=== PATIENT | female | born 1955 | race American Indian/Alaskan Native ===

== ENCOUNTER 2021-07-29 15:55 | Inpatient (IN) | payer MEDICARE ==
[2021-07-29] MEDS ORDERED: SODIUM CHLORIDE 0.9% 1000 ML 1,000 ML IV ONE ×2 (16:25)
--- NOTE | 2021-07-29 16:32 | Emergency Department Report ---
HPI - General Chief Complaint: Weakness Time Seen by Provider: 07/29/21 16:12 - HPI HPI: Room 6 The patient is a 66-year-old female sent from [facility] with reported weakness, altered mental status and hypotension. Attempted to contact [facility] for further history and was notified that the nurse would call me back. The patient only complains of diffuse itching for the past 3 days. Patient denies shortness of breath, nausea/vomiting or pain ED Past Medical Hx - Past Medical History Additional medical history: Multiple sclerosis, iron deficiency anemia - Family History Family history: no significant - Social History Smoking Status: Unknown if ever smoked Substance Use Type: None - Medications Home Medications: Home Medications Medication Instructions Recorded Confirmed Last Taken Type Baclofen 20 mg PO TID 04/21/21 04/21/21 04/11/21 History DOXYCYCLINE Hyclate [Vibramycin 100 mg PO BID #14 tab 04/21/21 Unknown Rx CAP] Enoxaparin 90 mg SUB-Q Q12HR #3 syringe 04/21/21 Unknown Rx Metoprolol [Lopressor TAB] 12.5 mg PO BID #60 tablet 04/21/21 Unknown Rx Oxybutynin [Ditropan] 15 mg PO QDAY 04/21/21 04/21/21 04/11/21 History Venlafaxine [Effexor 37.5mg tab] 37.5 mg PO QDAY 04/21/21 04/21/21 04/11/21 History ED Review of Systems ROS: Stated complaint: HYPOTENSION Other details as noted in HPI Constitutional: denies: fever Eyes: denies: eye pain ENT: denies: throat pain Respiratory: denies: cough, shortness of breath Cardiovascular: denies: chest pain Endocrine: no symptoms reported Gastrointestinal: denies: nausea, vomiting Genitourinary: denies: dysuria Musculoskeletal: denies: back pain Skin: pruritus Neurological: denies: headache Physical Exam - Physical Exam Vital Signs: Vital Signs 07/29/21 07/29/21 15:57 16:18 Temperature 99.5 F Pulse Rate 84 Respiratory 14 Rate Blood Pressure 96/60 [Right] O2 Sat by Pulse 100 Oximetry Physical Exam: GENERAL: The patient is well-developed well-nourished female lying on stretcher not appearing to be in acute distress. [] HEENT: Normocephalic. Atraumatic. Extraocular motions are intact. Patient has moist mucous membranes. NECK: Supple. No meningitic signs are noted. There is no adenopathy noted. CHEST/LUNGS: Clear to auscultation. There is no respiratory distress noted. HEART/CARDIOVASCULAR: Regular. There is tachycardia. There is no gallop rub or murmur. ABDOMEN: Abdomen is soft, nontender. Patient has normal bowel sounds. There is no abdominal distention. SKIN: There is an approximately racquetball sized sacral decubitus ulcer that is foul-smelling with some grayish-brown drainage NEURO: The patient is awake, alert, and oriented. The patient is cooperative. The patient has no focal neurologic deficits. The patient has normal speech. GCS 15 MUSCULOSKELETAL: There is no evidence of acute injury. ED Course Vital Signs 07/29/21 07/29/21 15:57 16:18 Temperature 99.5 F Pulse Rate 84 Respiratory 14 Rate Blood Pressure 96/60 [Right] O2 Sat by Pulse 100 Oximetry - Central Line Placement Right Femoral Consent Obtained: verbal consent Time Out Performed: Yes Patient Placed on Monitor/Pulse Ox: Yes MD Prep: mask, gown, gloves Central Line Prep: Povidone-Iodine 1% Local Anesthesia Used: Lidocaine 1% Amount of Anesthesia Used (mls): 5 Ultrasound Used for Placement: No Central Line Lumen Inserted: triple Reason for Insertion: Emergency Venous Access Bloods Obtained for Lab: Yes Central Line Position: good blood return, all ports aspirated, flus Dressing Applied: Tegaderm Patient Tolerated Procedure: well, no complications Complications: none ED Medical Decision Making - Lab Data Result diagrams: 07/29/21 17:21 07/29/21 17:21 Laboratory Tests 07/29/21 07/29/21 07/29/21 16:16 17:21 17:21 WBC 22.1 H RBC 3.62 L Hgb 8.8 L Hct 27.6 L MCV 76 L MCH 24 L MCHC 32 RDW 18.9 H Plt Count 511 H Add Manual Diff Complete Total Counted 100 Seg Neuts % (Manual) 94.0 H Band Neutrophils % 0 Lymphocytes % (Manual) 5.0 L Reactive Lymphs % (Man) 0 Monocytes % (Manual) 1.0 Eosinophils % (Manual) 0 Basophils % (Manual) 0 Metamyelocytes % 0 Myelocytes % 0 Promyelocytes % 0 Blast Cells % 0 Nucleated RBC % Not Reportable Seg Neutrophils # Man 20.8 H Band Neutrophils # 0.0 Lymphocytes # (Manual) 1.1 L Abs React Lymphs (Man) 0.0 Monocytes # (Manual) 0.2 Eosinophils # (Manual) 0.0 Basophils # (Manual) 0.0 Metamyelocytes # 0.0 Myelocytes # 0.0 Promyelocytes # 0.0 Blast Cells # 0.0 WBC Morphology Not Reportable Hypersegmented Neuts Not Reportable Hyposegmented Neuts Not Reportable Hypogranular Neuts Not Reportable Smudge Cells Not Reportable Toxic Granulation 1+ Toxic Vacuolation Not Reportable Dohle Bodies Not Reportable Pelger-Huet Anomaly Not Reportable Kaylah Rods Not Reportable Platelet Estimate Consistent w auto Clumped Platelets Not Reportable Plt Clumps, EDTA Not Reportable Large Platelets Not Reportable Giant Platelets Not Reportable Platelet Satelliting Not Reportable Plt Morphology Comment Not Reportable RBC Morphology Not Reportable Dimorphic RBCs Not Reportable Polychromasia Not Reportable Hypochromasia 1+ Poikilocytosis Not Reportable Anisocytosis Not Reportable Microcytosis Not Reportable Macrocytosis Not Reportable Spherocytes Not Reportable Pappenheimer Bodies Not Reportable Sickle Cells Not Reportable Target Cells Not Reportable Tear Drop Cells Not Reportable Ovalocytes Not Reportable Helmet Cells Not Reportable Rothman-[place] Bodies Not Reportable [place] Rings Not Reportable [place] Cells Not Reportable Bite Cells Not Reportable Crenated Cell Not Reportable Elliptocytes Not Reportable Acanthocytes (Spur) Not Reportable Rouleaux Not Reportable Hemoglobin C Crystals Not Reportable Schistocytes Not Reportable Malaria parasites Not Reportable Paul Bodies Not Reportable Hem Pathologist Commnt No Sodium 140 Potassium 4.1 Chloride 99.6 Carbon Dioxide 22 Anion Gap 23 BUN 35 H Creatinine 1.1 Estimated GFR > 60 BUN/Creatinine Ratio 32 Glucose 102 H POC Glucose 104 Lactic Acid Calcium 8.9 Total Bilirubin 0.30 AST 30 ALT 15 Alkaline Phosphatase 105 Troponin T 0.026 Total Protein 7.4 Albumin 3.3 L Albumin/Globulin Ratio 0.8 TSH Free T4 Urine Color Urine Turbidity Urine pH Ur Specific [place] Urine Protein Urine Glucose (UA) Urine Ketones Urine Blood Urine Nitrite Urine Bilirubin Urine Urobilinogen Ur Leukocyte Esterase Urine WBC (Auto) Urine RBC (Auto) U Epithel Cells (Auto) Urine Mucus 07/29/21 07/29/21 07/29/21 17:21 17:21 17:53 WBC RBC Hgb Hct MCV MCH MCHC RDW Plt Count Add Manual Diff Total Counted Seg Neuts % (Manual) Band Neutrophils % Lymphocytes % (Manual) Reactive Lymphs % (Man) Monocytes % (Manual) Eosinophils % (Manual) Basophils % (Manual) Metamyelocytes % Myelocytes % Promyelocytes % Blast Cells % Nucleated RBC % Seg Neutrophils # Man Band Neutrophils # Lymphocytes # (Manual) Abs React Lymphs (Man) Monocytes # (Manual) Eosinophils # (Manual) Basophils # (Manual) Metamyelocytes # Myelocytes # Promyelocytes # Blast Cells # WBC Morphology Hypersegmented Neuts Hyposegmented Neuts Hypogranular Neuts Smudge Cells Toxic Granulation Toxic Vacuolation Dohle Bodies Pelger-Huet Anomaly Kaylah Rods Platelet Estimate Clumped Platelets Plt Clumps, EDTA Large Platelets Giant Platelets Platelet Satelliting Plt Morphology Comment RBC Morphology Dimorphic RBCs Polychromasia Hypochromasia Poikilocytosis Anisocytosis Microcytosis Macrocytosis Spherocytes Pappenheimer Bodies Sickle Cells Target Cells Tear Drop Cells Ovalocytes Helmet Cells Rothman-[place]ante[place] Bodies [place] Rings Kaden Cells Bite Cells Crenated Cell Elliptocytes Acanthocytes (Spur) Rouleaux Hemoglobin C Crystals Schistocytes Malaria parasites Paul Bodies Hem Pathologist Commnt Sodium Potassium Chloride Carbon Dioxide Anion Gap BUN Creatinine Estimated GFR BUN/Creatinine Ratio Glucose POC Glucose Lactic Acid 1.30 Calcium Total Bilirubin AST ALT Alkaline Phosphatase Troponin T Total Protein Albumin Albumin/Globulin Ratio TSH 1.320 Free T4 1.51 H Urine Color Jackie Urine Turbidity Clear Urine pH 5.0 Ur Specific [place] 1.014 Urine Protein <15 mg/dl Urine Glucose (UA) Neg Urine Ketones Tr Urine Blood Neg Urine Nitrite Neg Urine Bilirubin Neg Urine Urobilinogen < 2.0 Ur Leukocyte Esterase Neg Urine WBC (Auto) 4.0 Urine RBC (Auto) 4.0 U Epithel Cells (Auto) < 1.0 Urine Mucus Few - EKG Data -: EKG Interpreted by Me EKG shows normal: sinus rhythm Rate: tachycardia (107 bpm) - EKG Data When compared to previous EKG there are: previous EKG unavailable Interpretation: nonspecific ST-T wave nataly - Differential Diagnosis Sepsis, dehydration, Critical care attestation.: If time is entered above; I have spent that time in minutes in the direct care of this critically ill patient, excluding procedure time. ED Disposition Clinical Impression: Infected decubitus ulcer, Sepsis Disposition: ADMITTED INPATIENT Is pt being admited?: Yes Does the pt Need Aspirin: No Condition: Fair Time of Disposition: 18:36 (Hospitalist called (Dr. Loera))
[2021-07-29 17:38] LABS: Hematocrit 27.6 % (30.3-42.9); Hemoglobin 8.8 gm/dl (10.1-14.3); Mean Corpuscular HGB Conc 32 % (30-34); Mean Corpuscular Volume 76 fl (79-97); Platelet Count 511 K/mm3 (140-440); Red Blood Count 3.62 M/mm3 (3.65-5.03); Red Cell Distribution Width 18.9 % (13.2-15.2)
--- NOTE | 2021-07-29 17:50 | XRay Report ---
CHEST 1 VIEW INDICATION: Hypotension, tachycardia. COMPARISON: 04/14/2021 FINDINGS: SUPPORT DEVICES: None. HEART: Within normal limits. LUNGS/PLEURA: No acute air space or interstitial disease. ADDITIONAL FINDINGS: None. IMPRESSION: 1. No acute findings. Signer Name: Aj Uribe MD Signed: 07/29/2021 5:45 PM Workstation Name: [id number]
[2021-07-29 18:02] LABS: Bilirubin,Urine NEG (Negative); Blood,Urine NEG (Negative); Color,Urine Amber (Yellow); Mucus,Urine FEW /HPF; Protein,Urine <15 mg/dL mg/dL (Negative); Urobilinogen,Urine < 2.0 mg/dL (<2.0)
[2021-07-29 18:12] LABS: Alanine Aminotransferase 15 units/L (7-56); Albumin 3.3 g/dL (3.9-5); BUN/Creatinine Ratio 32; Blood Urea Nitrogen 35 mg/dL (7-17); Calcium 8.9 mg/dL (8.4-10.2); Hemolysis Index 4
[2021-07-29 18:16] LABS: Basophils % (Manual) 0 % (0.0-1.8); Eosinophils % (Manual) 0 % (0.0-4.3); Hypochromasia 1+; Platelet Estimate Consistent w Auto; Total Cells Counted 100; Toxic Granulation 1+
[2021-07-29 18:20] LABS: Free T4 (Free Thyroxine) 1.51 ng/dL (0.76-1.46)
[2021-07-29] MEDS ORDERED: PIPERACIL/TAZOBACTA 4.5/NS 100 4.5 GM/100 ML VIAL IV ONE (18:30)
[2021-07-29] MEDS ORDERED: CEFEPIME/NS 2 GM/100 ML 2 GM/100 ML BAG IV ONE (18:34)
[2021-07-29] MEDS ORDERED: VANCOMYCIN/NS 1 GM/250 ML 1 GM/250 ML BAG IV ONE (18:34)
--- NOTE | 2021-07-29 21:03 | History and Physical Report ---
History of Present Illness Date of examination: 07/29/21 Date of admission: July 29, 2021 Chief complaint: Altered mental status for 1 day Foul-smelling sacral ulcer for unknown. History of present illness: 66-year-old -[place] female with multiple medical problems including multiple sclerosis and bedridden for about 8 years with bilateral foot drop sent in from [facility] for altered sensorium and foul-smelling sacral decubitus ulcer. Patient presents with altered sensorium. Intermittently answers questions appropriately. Patient could not give some history. 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 Low-grade fever present. Foul-smelling ulcer on the lower back. Patient is totally bedridden. Secondary to her multiple sclerosis and bilateral foot drop. No chills. Patient is vaccinated. - Past Medical History --Additional medical history: Multiple sclerosis, iron deficiency anemia - Family History --Family history: no significant - Social History --Smoking Status: Unknown if ever smoked --Substance Use Type: None - Medications --Home Medications: Home Medications Medication Instructions Recorded Confirmed Last Taken Type Baclofen 20 mg PO TID 04/21/21 04/21/21 04/11/21 History DOXYCYCLINE Hyclate [Vibramycin 100 mg PO BID #14 tab 04/21/21 Unknown Rx CAP] Enoxaparin 90 mg SUB-Q Q12HR #3 syringe 04/21/21 Unknown Rx Metoprolol [Lopressor TAB] 12.5 mg PO BID #60 tablet 04/21/21 Unknown Rx Oxybutynin [Ditropan] 15 mg PO QDAY 04/21/21 04/21/21 04/11/21 History Venlafaxine [Effexor 37.5mg tab] 37.5 mg PO QDAY 04/21/21 04/21/21 04/11/21 History Review of Systems ROS: Stated complaint: HYPOTENSION Other details as noted in HPI Constitutional: denies: fever Eyes: denies: eye pain ENT: denies: throat pain Respiratory: denies: cough, shortness of breath Cardiovascular: denies: chest pain Endocrine: no symptoms reported Gastrointestinal: denies: nausea, vomiting Genitourinary: denies: dysuria Musculoskeletal: denies: back pain Skin: pruritus Neurological: denies: headache Medications and Allergies Allergies Allergy/AdvReac Type Severity Reaction Status Date / Time Sulfa (Sulfonamide Allergy Hives Verified 04/21/21 08:35 Antibiotics) Home Medications Medication Instructions Recorded Confirmed Last Taken Type Baclofen 20 mg PO TID 04/21/21 07/29/21 1 Day Ago History ~07/28/21 DOXYCYCLINE Hyclate [Vibramycin 100 mg PO BID #14 tab 04/21/21 07/29/21 1 Day Ago Rx CAP] ~07/28/21 Enoxaparin 90 mg SUB-Q Q12HR #3 syringe 04/21/21 07/29/21 1 Day Ago Rx ~07/28/21 Metoprolol [Lopressor TAB] 12.5 mg PO BID #60 tablet 04/21/21 07/29/21 1 Day Ago Rx ~07/28/21 Oxybutynin [Ditropan] 15 mg PO QDAY 04/21/21 07/29/21 1 Day Ago History ~07/28/21 Venlafaxine [Effexor 37.5mg tab] 37.5 mg PO QDAY 04/21/21 07/29/21 1 Day Ago History ~07/28/21 Exam - Constitutional Vitals: Temp Pulse Resp BP Pulse Ox 99.4 F 104 H 16 176/132 95 07/29/21 17:53 07/29/21 19:01 07/29/21 19:01 07/29/21 19:01 07/29/21 18:45 General appearance: Present: no acute distress, well-nourished - EENT Eyes: Present: PERRL ENT: hearing intact, clear oral mucosa - Neck Neck: Present: supple, normal ROM - Respiratory Respiratory effort: normal Respiratory: bilateral: CTA - Cardiovascular Heart rate: 78 Rhythm: regular Heart Sounds: Present: S1 & S2. Absent: rub, click - Extremities Extremities: pulses symmetrical, No edema, abnormal (Stage IV sacral decubitus ulcer 5 cm X 5 cm with 1 cm in depth. Foul-smelling.) Extremity abnormal: other (Same as above.) Peripheral Pulses: within normal limits - Abdominal General gastrointestinal: Present: soft, non-tender, non-distended, normal bowel sounds Female genitourinary: Present: normal - Integumentary Integumentary: Present: clear, warm, dry - Musculoskeletal Musculoskeletal: generalized weakness, other (Lower extremity weakness-both lower extremities) - Psychiatric Psychiatric: depressed, other (Altered sensorium.) - Neurologic Neurologic: CNII-XII intact, moves all extremities HEART Score - HEART Score Troponin: Troponin T 0.026 ng/mL (0.00-0.029) 07/29/21 17:21 Results - Labs CBC & Chem 7: 07/29/21 17:21 07/30/21 06:12 Labs: Laboratory Last Values WBC 22.1 K/mm3 (4.5-11.0) H 07/29/21 17:21 RBC 3.62 M/mm3 (3.65-5.03) L 07/29/21 17:21 Hgb 8.8 gm/dl (10.1-14.3) L 07/29/21 17:21 Hct 27.6 % (30.3-42.9) L 07/29/21 17:21 MCV 76 fl (79-97) L 07/29/21 17:21 MCH 24 pg (28-32) L 07/29/21 17: MCHC 32 % (30-34) 07/29/21 17:21 RDW 18.9 % (13.2-15.2) H 07/29/21 17:21 Plt Count 511 K/mm3 (140-440) H 07/29/21 17:21 Add Manual Diff Complete 07/29/21 17:21 Total Counted 100 07/29/21 17:21 Seg Neuts % (Manual) 94.0 % (40.0-70.0) H 07/29/21 17:21 Band Neutrophils % 0 % 07/29/21 17:21 Lymphocytes % (Manual) 5.0 % (13.4-35.0) L 07/29/21 17:21 Reactive Lymphs % (Man) 0 % 07/29/21 17:21 Monocytes % (Manual) 1.0 % (0.0-7.3) 07/29/21 17:21 Eosinophils % (Manual) 0 % (0.0-4.3) 07/29/21 17:21 Basophils % (Manual) 0 % (0.0-1.8) 07/29/21 17:21 Metamyelocytes % 0 % 07/29/21 17:21 Myelocytes % 0 % 07/29/21 17:21 Promyelocytes % 0 % 07/29/21 17:21 Blast Cells % 0 % 07/29/21 17:21 Nucleated RBC % Not Reportable 07/29/21 17:21 Seg Neutrophils # Man 20.8 K/mm3 (1.8-7.7) H 07/29/21 17:21 Band Neutrophils # 0.0 K/mm3 07/29/21 17:21 Lymphocytes # (Manual) 1.1 K/mm3 (1.2-5.4) L 07/29/21 17:21 Abs React Lymphs (Man) 0.0 K/mm3 07/29/21 17:21 Monocytes # (Manual) 0.2 K/mm3 (0.0-0.8) 07/29/21 17:21 Eosinophils # (Manual) 0.0 K/mm3 (0.0-0.4) 07/29/21 17:21 Basophils # (Manual) 0.0 K/mm3 (0.0-0.1) 07/29/21 17:21 Metamyelocytes # 0.0 K/mm3 07/29/21 17:21 Myelocytes # 0.0 K/mm3 07/29/21 17:21 Promyelocytes # 0.0 K/mm3 07/29/21 17:21 Blast Cells # 0.0 K/mm3 07/29/21 17:21 WBC Morphology Not Reportable 07/29/21 17:21 Hypersegmented Neuts Not Reportable 07/29/21 17:21 Hyposegmented Neuts Not Reportable 07/29/21 17:21 Hypogranular Neuts Not Reportable 07/29/21 17:21 Smudge Cells Not Reportable 07/29/21 17:21 Toxic Granulation 1+ 07/29/21 17:21 Toxic Vacuolation Not Reportable 07/29/21 17:21 Dohle Bodies Not Reportable 07/29/21 17:21 Pelger-Huet Anomaly Not Reportable 07/29/21 17:21 Kaylah Rods Not Reportable 07/29/21 17:21 Platelet Estimate Consistent w auto 07/29/21 17:21 Clumped Platelets Not Reportable 07/29/21 17:21 Plt Clumps, EDTA Not Reportable 07/29/21 17:21 Large Platelets Not Reportable 07/29/21 17:21 Giant Platelets Not Reportable 07/29/21 17:21 Platelet Satelliting Not Reportable 07/29/21 17:21 Plt Morphology Comment Not Reportable 07/29/21 17:21 RBC Morphology Not Reportable 07/29/21 17:21 Dimorphic RBCs Not Reportable 07/29/21 17:21 Polychromasia Not Reportable 07/29/21 17:21 Hypochromasia 1+ 07/29/21 17:21 Poikilocytosis Not Reportable 07/29/21 17:21 Anisocytosis Not Reportable 07/29/21 17:21 Microcytosis Not Reportable 07/29/21 17:21 Macrocytosis Not Reportable 07/29/21 17:21 Spherocytes Not Reportable 07/29/21 17:21 Pappenheimer Bodies Not Reportable 07/29/21 17:21 Sickle Cells Not Reportable 07/29/21 17:21 Target Cells Not Reportable 07/29/21 17:21 Tear Drop Cells Not Reportable 07/29/21 17:21 Ovalocytes Not Reportable 07/29/21 17:21 Helmet Cells Not Reportable 07/29/21 17:21 Rothman-[place] Bodies Not Reportable 07/29/21 17:21 [place] Rings Not Reportable 07/29/21 17:21 [place] Cells Not Reportable 07/29/21 17:21 Bite Cells Not Reportable 07/29/21 17:21 Crenated Cell Not Reportable 07/29/21 17:21 Elliptocytes Not Reportable 07/29/21 17:21 Acanthocytes (Spur) Not Reportable 07/29/21 17:21 Rouleaux Not Reportable 07/29/21 17:21 Hemoglobin C Crystals Not Reportable 07/29/21 17:21 Schistocytes Not Reportable 07/29/21 17:21 Malaria parasites Not Reportable 07/29/21 17:21 Paul Bodies Not Reportable 07/29/21 17:21 Hem Pathologist Commnt No 07/29/21 17:21 Sodium 140 mmol/L (137-145) 07/29/21 17:21 Potassium 4.1 mmol/L (3.6-5.0) 07/29/21 17:21 Chloride 99.6 mmol/L (98-107) 07/29/21 17:21 Carbon Dioxide 22 mmol/L (22-30) 07/29/21 17:21 Anion Gap 23 mmol/L 07/29/21 17:21 BUN 35 mg/dL (7-17) H 07/29/21 17:21 Creatinine 1.1 mg/dL (0.6-1.2) 07/29/21 17:21 Estimated GFR > 60 ml/min 07/29/21 17:21 BUN/Creatinine Ratio 32 % 07/29/21 17:21 Glucose 102 mg/dL (65-100) H 07/29/21 17:21 POC Glucose 104 mg/dL (70-105) 07/29/21 16:16 Lactic Acid 1.30 mmol/L (0.7-2.0) 07/29/21 17:21 Calcium 8.9 mg/dL (8.4-10.2) 07/29/21 17:21 Total Bilirubin 0.30 mg/dL (0.1-1.2) 07/29/21 17:21 AST 30 units/L (5-40) 07/29/21 17:21 ALT 15 units/L (7-56) 07/29/21 17:21 Alkaline Phosphatase 105 units/L (35-129) 07/29/21 17:21 Troponin T 0.026 ng/mL (0.00-0.029) 07/29/21 17:21 Total Protein 7.4 g/dL (6.3-8.2) 07/29/21 17:21 Albumin 3.3 g/dL (3.9-5) L 07/29/21 17:21 Albumin/Globulin Ratio 0.8 % 07/29/21 17:21 TSH 1.320 mlU/mL (0.270-4.200) 07/29/21 17:21 Free T4 1.51 ng/dL (0.76-1.46) H 07/29/21 17:21 Urine Color Jackie (Yellow) 07/29/21 17:53 Urine Turbidity Clear (Clear) 07/29/21 17:53 Urine pH 5.0 (5.0-7.0) 07/29/21 17:53 Ur Specific [place] 1.014 (1.003-1.030) 07/29/21 17:53 Urine Protein <15 mg/dl mg/dL (Negative) 07/29/21 17:53 Urine Glucose (UA) Neg mg/dL (Negative) 07/29/21 17:53 Urine Ketones Tr mg/dL (Negative) 07/29/21 17:53 Urine Blood Neg (Negative) 07/29/21 17:53 Urine Nitrite Neg (Negative) 07/29/21 17:53 Urine Bilirubin Neg (Negative) 07/29/21 17:53 Urine Urobilinogen < 2.0 mg/dL (<2.0) 07/29/21 17:53 Ur Leukocyte Esterase Neg (Negative) 07/29/21 17:53 Urine WBC (Auto) 4.0 /HPF (0.0-6.0) 07/29/21 17:53 Urine RBC (Auto) 4.0 /HPF (0.0-6.0) 07/29/21 17:53 U Epithel Cells (Auto) < 1.0 /HPF (0-13.0) 07/29/21 17:53 Urine Mucus Few /HPF 07/29/21 17:53 - Imaging and Cardiology EKG: report reviewed (Sinus rhythm, heart rate of 107) Assessment and Plan Advance Directives: Yes (Full code) VTE prophylaxis?: Chemical Plan of care discussed with patient/family: Yes - Patient Problems (1) Acute encephalopathy Current Visit: No Status: Acute Plan to address problem: Altered sensorium was transient (2) Sepsis Current Visit: Yes Status: Acute Qualifiers: Severe sepsis shock status: without septic shock Plan to address problem: Sepsis secondary to sacral decubitus ulcer patient started on IV Unasyn and vancomycin Surgical consult Possible debridement (3) Sacral decubitus ulcer, stage IV Current Visit: Yes Status: Chronic Plan to address problem: patient started on IV Unasyn and vancomycin Surgical consult Possible debridement (4) Multiple sclerosis Current Visit: No Status: Chronic Plan to address problem: Patient has bilateral lower extremity weakness Physical therapy may not be helpful but will request evaluation (5) Hypertension Current Visit: No Status: Chronic Qualifiers: Hypertension type: primary hypertension Qualified Code(s): I10 - Essential (primary) hypertension Plan to address problem: Continue antihypertensives (6) Urinary incontinence Current Visit: Yes Status: Chronic Qualifiers: Urinary Incontinence type: stress incontinence Qualified Code(s): N39.3 - Stress incontinence (female) (male) Plan to address problem: Patient on oxybutynin (7) Malnutrition Current Visit: Yes Status: Chronic Qualifiers: Protein-calorie malnutrition severity: moderate Plan to address problem: Dietary surveillance initiated (8) Anemia of chronic disease Current Visit: Yes Status: Chronic Plan to address problem: Anemia work-up (9) Advance care planning Current Visit: Yes Status: Acute Plan to address problem: Disease education conducted, care plan discussed, diagnosis discussed, prognosis discussed. Patient is full code. Patient acknowledges understanding and agre ement with care plan. +30 minutes. (10) DVT prophylaxis Current Visit: Yes Status: Acute Plan to address problem: On anticoagulation and GI prophylaxis
[2021-07-29] MEDS ORDERED: ACETAMINOPHEN 325 MG TAB PO PRN (21:04)
[2021-07-29] MEDS ORDERED: METOCLOPRAMIDE 10 MG/2 ML INJ IV PRN (21:04)
[2021-07-29] MEDS ORDERED: ONDANSETRON 4 MG/2 ML INJ IV PRN (21:04)
[2021-07-29] MEDS ORDERED: VANCOMYCIN PHARMACY TO DOSE IV SCH (22:00)
[2021-07-29] MEDS: METOPROLOL TARTRATE 25 MG TAB PO SCH (22:35)
[2021-07-30] MEDS: AMPICILLIN/SULBACTA 3GM/100ML 3 GM/100 ML BAG IV SCH ×4 (04:04→17:26)
[2021-07-30] MEDS: SODIUM CHLORIDE 0.9% 1000 ML 1,000 ML IV SCH (05:51)
[2021-07-30 07:23] LABS: Alanine Aminotransferase 12 units/L (7-56); Albumin 2.7 g/dL (3.9-5); BUN/Creatinine Ratio 36; Blood Urea Nitrogen 29 mg/dL (7-17); Calcium 8.1 mg/dL (8.4-10.2); Hemolysis Index 1
[2021-07-30] MEDS ORDERED: NON-FORMULARY EACH (Baclofen [Baclofen] 20 MG Tablet) PO SCH (08:00)
[2021-07-30] MEDS: BACLOFEN 10 MG TAB PO SCH ×3 (08:00→20:21)
[2021-07-30 08:05] LABS: Basophils # (Auto) 0.1 K/mm3 (0.0-0.1); Basophils % (Auto) 0.4 % (0.0-1.8); Eosinophils % (Auto) 0.2 % (0.0-4.3); Hematocrit 24.5 % (30.3-42.9); Hemoglobin 7.6 gm/dl (10.1-14.3); Lymphocytes % (Auto) 12.7 % (13.4-35.0); Mean Corpuscular HGB Conc 31 % (30-34); Mean Corpuscular Volume 78 fl (79-97); Monocytes # (Auto) 1.2 K/mm3 (0.0-0.8); Monocytes % (Auto) 7.6 % (0.0-7.3); Platelet Count 431 K/mm3 (140-440); Red Blood Count 3.15 M/mm3 (3.65-5.03); Red Cell Distribution Width 19.4 % (13.2-15.2)
[2021-07-30] MEDS: METOPROLOL TARTRATE 25 MG TAB PO SCH ×2 (09:54→22:17)
[2021-07-30] MEDS: VANCOMYCIN/NS 1 GM/250 ML 1 GM/250 ML BAG IV SCH ×2 (09:58→21:27)
[2021-07-30] MEDS: OXYBUTYNIN 5 MG TAB PO SCH (09:59)
[2021-07-30] MEDS: VENLAFAXINE 37.5 MG TAB PO SCH (09:59)
--- NOTE | 2021-07-30 15:54 | Consultation ---
History of Present Illness Consult date: 07/30/21 Chief complaint: Sacral wound - History of present illness History of present illness: 66-year-old female with a history of multiple sclerosis who is bedbound. Patient is currently residing in a penit[facility]iary and was sent from the penitentiary to the hospital for altered mental status and evaluation of a sacral decubitus ulcer. Patient states she has been in the penitentiary since February of last year and does not have a history of a sacral wound prior to this. She states that she has pain throughout her body. No fevers or chills. No chest pain or shortness of breath. During evaluation in the emergency room patient wa s noted to have a foul-smelling necrotic sacral decubitus ulcer for which surgery is consulted. Past History Past Medical History: other (Multiple sclerosis, bedbound, chronic pain) Past Surgical History: Other (Unknown) Social history: other (Lives in penitentiary) Family history: no significant family history Medications and Allergies Allergies Allergy/AdvReac Type Severity Reaction Status Date / Time Sulfa (Sulfonamide Allergy Hives Verified 04/21/21 08:35 Antibiotics) Home Medications Medication Instructions Recorded Confirmed Last Taken Type Baclofen 20 mg PO TID 04/21/21 07/29/21 1 Day Ago History ~07/28/21 DOXYCYCLINE Hyclate [Vibramycin 100 mg PO BID #14 tab 04/21/21 07/29/21 1 Day Ago Rx CAP] ~07/28/21 Enoxaparin 90 mg SUB-Q Q12HR #3 syringe 04/21/21 07/29/21 1 Day Ago Rx ~07/28/21 Metoprolol [Lopressor TAB] 12.5 mg PO BID #60 tablet 04/21/21 07/29/21 1 Day Ago Rx ~07/28/21 Oxybutynin [Ditropan] 15 mg PO QDAY 04/21/21 07/29/21 1 Day Ago History ~07/28/21 Venlafaxine [Effexor 37.5mg tab] 37.5 mg PO QDAY 04/21/21 07/29/21 1 Day Ago History ~07/28/21 Active Meds: Active Medications Acetaminophen (Acetaminophen 325 Mg Tab) 650 mg PO Q4H PRN PRN Reason: Pain MILD(1-3)/Fever >100.5/SCOTT Baclofen (Baclofen 10 Mg Tab) 10 mg PO TID [facility] Last Admin: 07/30/21 14:13 Dose: 10 mg Hydromorphone HCl (Hydromorphone 1 Mg/1 Ml Inj) 0.5 mg IV Q3H PRN PRN Reason: Pain , Severe (7-10) Sodium Chloride (Nacl 0.9% 1000 Ml) 1,000 mls @ 75 mls/hr IV DIRECT [facility] Last Admin: 07/30/21 05:51 Dose: 75 mls/hr Ampicillin Sodium/Sulbactam Sodium (Unasyn/Ns 3 Gm/100 Ml) 3 gm in 100 mls @ 100 mls/hr IV Q6HR [facility]; Protocol Last Admin: 07/30/21 12:00 Dose: 100 mls/hr Vancomycin HCl (Vancomycin/Ns 1 Gm/250 Ml) 1 gm in 250 mls @ 166.667 mls/hr IV Q12H [facility] Last Admin: 07/30/21 09:58 Dose: 166.667 mls/hr Metoclopramide HCl (Metoclopramide 10 Mg/2 Ml Inj) 10 mg IV Q6H PRN PRN Reason: Nausea And Vomiting Metoprolol Tartrate (Metoprolol Tartrate 25 Mg Tab) 12.5 mg PO BID [facility] Last Admin: 07/30/21 09:54 Dose: Not Given Ondansetron HCl (Ondansetron 4 Mg/2 Ml Inj) 4 mg IV Q3H PRN PRN Reason: Nausea And Vomiting Oxybutynin Chloride (Oxybutynin 5 Mg Tab) 15 mg PO QDAY [facility] Last Admin: 07/30/21 09:59 Dose: 15 mg Oxycodone/Acetaminophen (Oxycodone /Acetaminophen 5-325mg Tab) 1 tab PO Q6H PRN PRN Reason: Pain, Moderate (4-6) Sodium Chloride (Sodium Chloride 0.9% 10 Ml Flush Syringe) 10 ml IV BID [facility] Last Admin: 07/30/21 10:00 Dose: 10 ml Sodium Chloride (Sodium Chloride 0.9% 10 Ml Flush Syringe) 10 ml IV PRN PRN PRN Reason: LINE FLUSH Venlafaxine HCl (Venlafaxine 37.5 Mg Tab) 37.5 mg PO QDAY [facility] Last Admin: 07/30/21 09:59 Dose: 37.5 mg Review of Systems All systems: negative (10 point ROS performed and negative except for that listed in HPI) Exam Vital Signs Pulse Resp BP Pulse Ox 84 14 96/60 100 07/29/21 15:57 07/29/21 15:57 07/29/21 15:57 07/29/21 15:57 Narrative exam: Gen.: Awake, alert, oriented x3. No apparent distress ENT: Trachea midline. No lymphadenopathy. No scleral icterus or conjunctival pallor CV: S1, S2 present Respiratory: No audible wheezes Abdomen: Soft, nondistended, nontender. No rebound, rigidity, guarding Extremities: Bilateral lower extremities are flaccid with foot drop. Sacrum: 6 cm sacral wound, unstageable. There is minimal purulent drainage and it is foul-smelling. Necrotic eschar. Results - Labs 07/30/21 06:12 07/30/21 06:12 Abnormal lab results 07/29/21 07/29/21 07/29/21 Range/Units 17:21 17:21 17:21 WBC 22.1 H (4.5-11.0) K/mm3 RBC 3.62 L (3.65-5.03) M/mm3 Hgb 8.8 L (10.1-14.3) gm/dl Hct 27.6 L (30.3-42.9) % MCV 76 L (79-97) fl MCH 24 L (28-32) pg RDW 18.9 H (13.2-15.2) % Plt Count 511 H (140-440) K/mm3 Lymph % (Auto) (13.4-35.0) % Alpine % (Auto) (0.0-7.3) % Alpine # (Auto) (0.0-0.8) K/mm3 Seg Neutrophils % (40.0-70.0) % Seg Neuts % (Manual) 94.0 H (40.0-70.0) % Lymphocytes % (Manual) 5.0 L (13.4-35.0) % Seg Neutrophils # (1.8-7.7) K/mm3 Seg Neutrophils # Man 20.8 H (1.8-7.7) K/mm3 Lymphocytes # (Manual) 1.1 L (1.2-5.4) K/mm3 Chloride (98-107) mmol/L Carbon Dioxide (22-30) mmol/L BUN 35 H (7-17) mg/dL Glucose 102 H (65-100) mg/dL Calcium (8.4-10.2) mg/dL Total Protein (6.3-8.2) g/dL Albumin 3.3 L (3.9-5) g/dL Free T4 1.51 H (0.76-1.46) ng/dL 07/30/21 07/30/21 Range/Units 06:12 06:12 WBC 15.4 H (4.5-11.0) K/mm3 RBC 3.15 L (3.65-5.03) M/mm3 Hgb 7.6 L (10.1-14.3) gm/dl Hct 24.5 L (30.3-42.9) % MCV 78 L (79-97) fl MCH 24 L (28-32) pg RDW 19.4 H (13.2-15.2) % Plt Count (140-440) K/mm3 Lymph % (Auto) 12.7 L (13.4-35.0) % Alpine % (Auto) 7.6 H (0.0-7.3) % Alpine # (Auto) 1.2 H (0.0-0.8) K/mm3 Seg Neutrophils % 79.1 H (40.0-70.0) % Seg Neuts % (Manual) (40.0-70.0) % Lymphocytes % (Manual) (13.4-35.0) % Seg Neutrophils # 12.2 H (1.8-7.7) K/mm3 Seg Neutrophils # Man (1.8-7.7) K/mm3 Lymphocytes # (Manual) (1.2-5.4) K/mm3 Chloride 107.3 H (98-107) mmol/L Carbon Dioxide 20 L (22-30) mmol/L BUN 29 H (7-17) mg/dL Glucose (65-100) mg/dL Calcium 8.1 L (8.4-10.2) mg/dL Total Protein 6.2 L (6.3-8.2) g/dL Albumin 2.7 L (3.9-5) g/dL Free T4 (0.76-1.46) ng/dL Diabetes panel 07/29/21 07/30/21 Range/Units 17: 06:12 Sodium 140 145 (137-145) mmol/L Potassium 4.1 3.6 (3.6-5.0) mmol/L Chloride 99.6 107.3 H (98-107) mmol/L Carbon Dioxide 22 20 L (22-30) mmol/L BUN 35 H 29 H (7-17) mg/dL Creatinine 1.1 0.8 (0.6-1.2) mg/dL Glucose 102 H 85 (65-100) mg/dL Calcium 8.9 8.1 L (8.4-10.2) mg/dL AST 30 20 (5-40) units/L ALT 15 12 (7-56) units/L Alkaline Phosphatase 105 86 (35-129) units/L Total Protein 7.4 6.2 L (6.3-8.2) g/dL Albumin 3.3 L 2.7 L (3.9-5) g/dL Thyroid panel 07/29/21 Range/Units 17:21 TSH 1.320 (0.270-4.200) mlU/mL Calcium panel 07/29/21 07/30/21 Range/Units 17: 06:12 Calcium 8.9 8.1 L (8.4-10.2) mg/dL Albumin 3.3 L 2.7 L (3.9-5) g/dL Pituitary panel 07/29/21 07/29/21 07/30/21 Range/Units 17:21 17:21 06:12 Sodium 140 145 (137-145) mmol/L Potassium 4.1 3.6 (3.6-5.0) mmol/L Chloride 99.6 107.3 H (98-107) mmol/L Carbon Dioxide 22 20 L (22-30) mmol/L BUN 35 H 29 H (7-17) mg/dL Creatinine 1.1 0.8 (0.6-1.2) mg/dL Glucose 102 H 85 (65-100) mg/dL Calcium 8.9 8.1 L (8.4-10.2) mg/dL TSH 1.320 (0.270-4.200) mlU/mL Adrenal panel 07/29/21 07/30/21 Range/Units 17:21 06:12 Sodium 140 145 (137-145) mmol/L Potassium 4.1 3.6 (3.6-5.0) mmol/L Chloride 99.6 107.3 H (98-107) mmol/L Carbon Dioxide 22 20 L (22-30) mmol/L BUN 35 H 29 H (7-17) mg/dL Creatinine 1.1 0.8 (0.6-1.2) mg/dL Glucose 102 H 85 (65-100) mg/dL Calcium 8.9 8.1 L (8.4-10.2) mg/dL Total Bilirubin 0.30 0.30 (0.1-1.2) mg/dL AST 30 20 (5-40) units/L ALT 15 12 (7-56) units/L Alkaline Phosphatase 105 86 (35-129) units/L Total Protein 7.4 6.2 L (6.3-8.2) g/dL Albumin 3.3 L 2.7 L (3.9-5) g/dL Assessment and Plan 66-year-old female with 1.infected unstageable sacral decubitus ulcer 2. bedbound 2/2 MS 3. protein calorie malnutrition Plan: 1. reg diet with supplements, n.p.o. past midnight tonight 2. IVF 3. IV abx 4. prn pain control 5. prealbumin 6. offloading of sacrum and b/l heels 7. Recommend debridement of sacral wound. Patient does have sensation in this area and would benefit from debridement in the operating room under anesthesia. I discussed this with the patient and all questions answered. Plan for OR tomorrow afternoon. I also spoke with the patient's daughter at the patient's request, Maria Del Rosario Prasad [phone] and she was updated. Thank you for this consultation. Please call with any questions or concerns. Evaluation and treatment of this patient was during the time of the national and state emergency arising from COVID19 coronavirus pandemic. Treatment and procedures performed meet the current and available best practice and guidelines for patient during the COVID pandemic.
[2021-07-30] MEDS ORDERED: VANCOMYCIN/NS 1 GM/250 ML 1 GM/250 ML BAG IV SCH (19:00)
[2021-07-31] MEDS: SODIUM CHLORIDE 0.9% 1000 ML 1,000 ML IV SCH (00:25)
[2021-07-31] MEDS: AMPICILLIN/SULBACTA 3GM/100ML 3 GM/100 ML BAG IV SCH ×4 (00:26→18:10)
[2021-07-31] MEDS: HYDROmorphone 1 MG/1 ML INJ IV PRN (00:33)
--- NOTE | 2021-07-31 08:35 | Progress Note ---
Assessment and Plan - Patient Problems (1) Acute encephalopathy Current Visit: No Status: Acute Plan to address problem: Altered sensorium was transient (2) Sepsis Current Visit: Yes Status: Acute Qualifiers: Severe sepsis shock status: without septic shock Plan to address problem: Sepsis secondary to sacral decubitus ulcer patient started on IV Unasyn and vancomycin Surgical consult Possible debridement (3) Sacral decubitus ulcer, stage IV Current Visit: Yes Status: Chronic Plan to address problem: patient started on IV Unasyn and vancomycin Surgical consult appreciated Debridement in OR tomorrow Per Surgery---Dr Jenni Biggs "1.Infected unstageable sacral decubitus ulcer 2. bedbound 2/2 MS 3. protein calorie malnutrition Plan: 1. reg diet with supplements, n.p.o. past midnight tonight 2. IVF 3. IV abx 4. prn pain control 5. prealbumin 6. offloading of sacrum and b/l heels 7. Recommend debridement of sacral wound. Patient does have sensation in this area and would benefit from debridement in the operating room under anesthesia. I discussed this with the patient and all questions answered. Plan for OR cristian orrow afternoon. I also spoke with the patient's daughter at the patient's request, Maria Del Rosario Prasad [phone] and she was updated. " (4) Multiple sclerosis Current Visit: No Status: Chronic Plan to address problem: Patient has bilateral lower extremity weakness Physical therapy may not be helpful but will request evaluation (5) Hypertension Current Visit: No Status: Chronic Qualifiers: Hypertension type: primary hypertension Qualified Code(s): I10 - Essential (primary) hypertension Plan to address problem: Continue antihypertensives (6) Urinary incontinence Current Visit: Yes Status: Chronic Qualifiers: Urinary Incontinence type: stress incontinence Qualified Code(s): N39.3 - Stress incontinence (female) (male) Plan to address problem: Patient on oxybutynin (7) Malnutrition Current Visit: Yes Status: Chronic Qualifiers: Protein-calorie malnutrition severity: moderate Plan to address problem: Dietary surveillance initiated (8) Anemia of chronic disease Current Visit: Yes Status: Chronic Plan to address problem: Anemia work-up (9) Advance care planning Current Visit: Yes Status: Acute Plan to address problem: Disease education conducted, care plan discussed, diagnosis discussed, prognosis discussed. Patient is full code. Patient acknowledges understanding and agreement with care plan. +30 minutes. (10) DVT prophylaxis Current Visit: Yes Status: Acute Plan to address problem: On anticoagulation and GI prophylaxis Subjective Date of service: 07/30/21 Objective - Constitutional Vitals: Vital Signs - 12hr 07/30/21 07/30/21 07/31/21 21:30 21:51 04:27 Temperature 98.7 F 99.6 F Pulse Rate 107 H 102 H Respiratory 16 16 Rate Blood Pressure 115/55 116/50 O2 Sat by Pulse 95 98 93 Oximetry - Labs CBC & Chem 7: 07/30/21 06:12 07/30/21 06:12 HEART Score - HEART Score Troponin: Troponin T 0.026 ng/mL (0.00-0.029) 07/29/21 17:21
--- NOTE | 2021-07-31 10:49 | Electrocardiograph Report ---
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
[2021-07-31] MEDS ORDERED: LIDOCAINE MPF (2%) 20 MG/1 ML VIAL 5 ML ONE (10:55)
[2021-07-31] MEDS ORDERED: fentaNYL 100 MCG/2 ML INJ ONE (10:56)
[2021-07-31] MEDS ORDERED: propofoL 200 MG/20 ML VIAL IV ONE (10:56)
[2021-07-31] MEDS ORDERED: MIDAZOLAM 2 MG/2 ML INJ ONE (10:56)
[2021-07-31] MEDS ORDERED: BUPIVACAINE/PF (0.5%) 5 MG/1 ML 30 ML VIAL INFILTRATI ONE ×2 (10:57→11:46)
[2021-07-31] MEDS ORDERED: LIDOCAINE (1%) 10 MG/1 ML VIAL 20 ML MDV ONE (10:57)
--- NOTE | 2021-07-31 11:13 | Anesthesia Day of Surgery ---
Anesthesia Day of Surgery - Day of Surgery Patient Examined: Yes Patient H&P Reviewed: Yes Patient is NPO: Yes
--- NOTE | 2021-07-31 11:16 | Anesthesia Consultation ---
Anesthesia Consult and Med Hx Date of service: 07/31/21 - Airway Anesthetic Teeth Evaluation: Edentulous ROM Head & Neck: Adequate Mental/Hyoid Distance: Adequate Mallampati Class: Class III - Cardiac Exam Cardiac Exam: RRR - Pre-Operative Health Status ASA Pre-Surgery Classification: ASA3 Proposed Anesthetic Plan: MAC - Pulmonary Hx Smoking: Yes (former smoker) Hx Asthma: No COPD: No Hx Pneumonia: No - Cardiovascular System Hx Hypertension: Yes - Central Nervous System Hx Neuromuscular Disorder: Yes (MS) Hx Psychiatric Problems: No - Gastrointestinal Hx Gastroesophageal Reflux Disease: Yes - Endocrine Hx End Stage Renal Disease: No - Hematic Hx Anemia: Yes Hx Sickle Cell Disease: No - Other Systems Hx Cancer: No
[2021-07-31] MEDS ORDERED: SODIUM HYPOCHLORITE, DAKIN'S 1/2 STRENGTH (0.25%) 473 ML TOPICAL SOLN ONE (11:38)
[2021-07-31] MEDS ORDERED: LIDOCAINE (1%) 10 MG/1 ML VIAL 20 ML MDV INFILTRATI ONE (11:47)
[2021-07-31] MEDS ORDERED: SODIUM CHLORIDE 0.9% IRR 1,500 ML BOTTLE IR ONE (11:47)
[2021-07-31] MEDS ORDERED: SODIUM HYPOCHLORITE, DAKIN'S 1/2 STRENGTH (0.25%) 473 ML TOPICAL SOLN IR ONE (11:47)
[2021-07-31] MEDS ORDERED: LACTATED RINGERS 1,000 ML ONE (11:56)
[2021-07-31] MEDS ORDERED: KETOROLAC 30 MG/1 ML INJ ONE (11:56)
--- NOTE | 2021-07-31 12:24 | Operative Report ---
Operative Report Operative Report: Date of surgery: 07/31/2021 Preoperative diagnosis: Infected sacral decubitus wound Postoperative diagnosis: Infected stage IV sacral decubitus wound Procedure: Excisional debridement of infected sacral decubitus wound Surgeon: DO Jamaal Anesthesia: MAC, local Findings: Necrotic skin, subcutaneous tissue, muscle and fascia overlying the bone. Initial wound measurement 5 x 6 x 0.25 cm. Post debridement wound measurement 7 x 8 x 2.5 cm EBL: 20 cc Specimen: Wound cultures Complications: None Disposition: Stable to PACU HPI and indication: Patient 66-year-old female with past medical history of MS who is bedbound and currently resides at her detention. The patient developed altered mental status prompting her to be sent to the emergency room. She was found to have a infected sacral decubitus ulcer, sepsis. She was admitted to the hospital for IV antibiotics. Upon evaluation the patient had a necrotic, unstageable sacral decubitus ulcer and it was recommended that she undergo debridement. All risk benefits, alternatives to surgery were discussed with the patient and questions answered. Consent obtained. Procedure in detail: Patient was identified in the preoperative area, take back to the operating room and placed on the operating table in supine position. After anesthesia was induced the patient was placed in left lateral decubitus position and all bony prominences padded appropriately. She was secured with a beanbag. The sacral area was prepped and draped in usual sterile fashion a timeout was performed. Local anesthetic was infiltrated around the periphery of the wound. Necrotic skin, subcutaneous tissue, muscle, and the fascia overlying the bone were sharply debrided with a forcep, 15 blade, and with Bovie electrocautery. Wound cultures were obtained. Once all the necrotic tissue was removed, the wound was irrigated. Hemostasis was carefully achieved using electrocautery. Once hemostasis was achieved the wound was packed with 1 piece of Dakin's moistened Kerlix. This was covered with 4 x 4 fluff gauze, ABD pad, Medipore tape. Please see above wound measurements. At the end of the case all sponge, instrument, sharp counts were correct x2. The patient was awoken from anesthesia and taken to PACU in stable condition. Patient's daughter was updated.
[2021-07-31] MEDS: OXYBUTYNIN 5 MG TAB PO SCH (12:25)
[2021-07-31] MEDS: BACLOFEN 10 MG TAB PO SCH ×3 (12:25→20:35)
[2021-07-31] MEDS: VENLAFAXINE 37.5 MG TAB PO SCH (12:25)
[2021-07-31] MEDS: METOPROLOL TARTRATE 25 MG TAB PO SCH ×2 (12:26→22:10)
[2021-07-31] MEDS: VANCOMYCIN/NS 1 GM/250 ML 1 GM/250 ML BAG IV SCH ×2 (12:27→22:07)
--- NOTE | 2021-07-31 14:35 | Post Anesthesia Evaluation ---
- Post Anesthesia Evaluation Patient Participated: Yes Airway Patent: Yes Stable Respiratory Function: Yes Nausea/Vomiting: No Temp > 96.8F: Yes Pain Manageable: Yes Adequeate Hydration: Yes Anesthesia Complications: No Block Receding Appropriately: Not Applicable Patient on Ventilator: No
[2021-07-31] MEDS: oxyCODONE /ACETAMINOPHEN 5-325MG TAB PO PRN (22:33)
[2021-08-01] MEDS: AMPICILLIN/SULBACTA 3GM/100ML 3 GM/100 ML BAG IV SCH ×5 (00:18→23:00)
[2021-08-01] MEDS ORDERED: SODIUM HYPOCHLORITE, DAKIN'S 1/2 STRENGTH (0.25%) 473 ML TOPICAL SOLN TP PRN (08:00)
[2021-08-01] MEDS: BACLOFEN 10 MG TAB PO SCH ×3 (08:30→20:41)
--- NOTE | 2021-08-01 08:35 | Progress Note ---
Assessment and Plan Assessment and plan: 66-year-old female with a history of multiple sclerosis who is bedbound. Patient is currently residing in a halfway and was sent from the halfway to the hospital for altered mental status and evaluation of a sacral decubitus ulcer. Patient states she has been in the halfway since February of last year and does not have a history of a sacral wound prior. During evaluation in the emergency room patient was noted to have a foul-smelling necrotic sacral decubitus ulcer for which surgery was consulted. Infected unstageable sacral decubitus ulcer Bedbound status secondary to multiple sclerosis Multiple sclerosis Protein calorie malnutrition Sepsis. Toxic metabolic encephalopathy 08/01/2021. Patient is s/p debridement with surgery. Continue offloading of sacrum and bilateral heels. Continue IV antibiotics and consult ID for further evaluation. Continue appropriate pain control. History Interval history: No new issues overnight Hospitalist Physical - Constitutional Vitals: Temp Pulse Resp BP Pulse Ox 98.2 F 101 H 18 107/48 91 08/01/21 04:52 08/01/21 04:52 08/01/21 04:52 08/01/21 04:52 08/01/21 04:52 General appearance: Present: no acute distress, well-nourished - EENT Eyes: Present: PERRL, EOM intact ENT: hearing intact, clear oral mucosa, dentition normal - Neck Neck: Present: supple, normal ROM - Respiratory Respiratory effort: normal Respiratory: bilateral: CTA - Cardiovascular Rhythm: regular Heart Sounds: Present: S1 & S2. Absent: gallop, rub - Extremities Extremities: no ischemia, No edema, Full ROM - Abdominal General gastrointestinal: soft, non-tender, non-distended, normal bowel sounds - Integumentary Integumentary: Present: clear, warm, dry - Neurologic Neurologic: CNII-XII intact, moves all extremities HEART Score - HEART Score Troponin: Troponin T 0.026 ng/mL (0.00-0.029) 07/29/21 17:21 Results - Labs CBC & Chem 7: 07/30/21 06:12 07/30/21 06:12 Labs: Laboratory Last Values WBC 15.4 K/mm3 (4.5-11.0) H 07/30/21 06:12 RBC 3.15 M/mm3 (3.65-5.03) L 07/30/21 06:12 Hgb 7.6 gm/dl (10.1-14.3) L 07/30/21 06:12 Hct 24.5 % (30.3-42.9) L 07/30/21 06:12 MCV 78 fl (79-97) L 07/30/21 06:12 MCH 24 pg (28-32) L 07/30/21 06:12 MCHC 31 % (30-34) 07/30/21 06:12 RDW 19.4 % (13.2-15.2) H 07/30/21 06:12 Plt Count 431 K/mm3 (140-440) 07/30/21 06:12 Lymph % (Auto) 12.7 % (13.4-35.0) L 07/30/21 06:12 [place] % (Auto) 7.6 % (0.0-7.3) H 07/30/21 06:12 Eos % (Auto) 0.2 % (0.0-4.3) 07/30/21 06:12 Baso % (Auto) 0.4 % (0.0-1.8) 07/30/21 06:12 Lymph # (Auto) 2.0 K/mm3 (1.2-5.4) 07/30/21 06:12 [place] # (Auto) 1.2 K/mm3 (0.0-0.8) H 07/30/21 06:12 Eos # (Auto) 0.0 K/mm3 (0.0-0.4) 07/30/21 06:12 Baso # (Auto) 0.1 K/mm3 (0.0-0.1) 07/30/21 06:12 Add Manual Diff Complete 07/29/21 17:21 Total Counted 100 07/29/21 17:21 Seg Neutrophils % 79.1 % (40.0-70.0) H 07/30/21 06:12 Seg Neuts % (Manual) 94.0 % (40.0-70.0) H 07/29/21 17:21 Band Neutrophils % 0 % 07/29/21 17:21 Lymphocytes % (Manual) 5.0 % (13.4-35.0) L 07/29/21 17:21 Reactive Lymphs % (Man) 0 % 07/29/21 17:21 Monocytes % (Manual) 1.0 % (0.0-7.3) 07/29/21 17:21 Eosinophils % (Manual) 0 % (0.0-4.3) 07/29/21 17:21 Basophils % (Manual) 0 % (0.0-1.8) 07/29/21 17:21 Metamyelocytes % 0 % 07/29/21 17:21 Myelocytes % 0 % 07/29/21 17:21 Promyelocytes % 0 % 07/29/21 17:21 Blast Cells % 0 % 07/29/21 17:21 Nucleated RBC % Not Reportable 07/29/21 17:21 Seg Neutrophils # 12.2 K/mm3 (1.8-7.7) H 07/30/21 06:12 Seg Neutrophils # Man 20.8 K/mm3 (1.8-7.7) H 07/29/21 17:21 Band Neutrophils # 0.0 K/mm3 07/29/21 17:21 Lymphocytes # (Manual) 1.1 K/mm3 (1.2-5.4) L 07/29/21 17:21 Abs React Lymphs (Man) 0.0 K/mm3 07/29/21 17:21 Monocytes # (Manual) 0.2 K/mm3 (0.0-0.8) 07/29/21 17:21 Eosinophils # (Manual) 0.0 K/mm3 (0.0-0.4) 07/29/21 17:21 Basophils # (Manual) 0.0 K/mm3 (0.0-0.1) 07/29/21 17:21 Metamyelocytes # 0.0 K/mm3 07/29/21 17:21 Myelocytes # 0.0 K/mm3 07/29/21 17:21 Promyelocytes # 0.0 K/mm3 07/29/21 17:21 Blast Cells # 0.0 K/mm3 07/29/21 17:21 WBC Morphology Not Reportable 07/29/21 17:21 Hypersegmented Neuts Not Reportable 07/29/21 17:21 Hyposegmented Neuts Not Reportable 07/29/21 17:21 Hypogranular Neuts Not Reportable 07/29/21 17:21 Smudge Cells Not Reportable 07/29/21 17:21 Toxic Granulation 1+ 07/29/21 17:21 Toxic Vacuolation Not Reportable 07/29/21 17:21 Dohle Bodies Not Reportable 07/29/21 17:21 Pelger-Huet Anomaly Not Reportable 07/29/21 17:21 Kaylah Rods Not Reportable 07/29/21 17:21 Platelet Estimate Consistent w auto 07/29/21 17:21 Clumped Platelets Not Reportable 07/29/21 17:21 Plt Clumps, EDTA Not Reportable 07/29/21 17:21 Large Platelets Not Reportable 07/29/21 17:21 Giant Platelets Not Reportable 07/29/21 17:21 Platelet Satelliting Not Reportable 07/29/21 17:21 Plt Morphology Comment Not Reportable 07/29/21 17:21 RBC Morphology Not Reportable 07/29/21 17:21 Dimorphic RBCs Not Reportable 07/29/21 17:21 Polychromasia Not Reportable 07/29/21 17:21 Hypochromasia 1+ 07/29/21 17:21 Poikilocytosis Not Reportable 07/29/21 17:21 Anisocytosis Not Reportable 07/29/21 17:21 Microcytosis Not Reportable 07/29/21 17:21 Macrocytosis Not Reportable 07/29/21 17:21 Spherocytes Not Reportable 07/29/21 17:21 Pappenheimer Bodies Not Reportable 07/29/21 17:21 Sickle Cells Not Reportable 07/29/21 17:21 Target Cells Not Reportable 07/29/21 17:21 Tear Drop Cells Not Reportable 07/29/21 17:21 Ovalocytes Not Reportable 07/29/21 17:21 Helmet Cells Not Reportable 07/29/21 17:21 [place] Bodies Not Reportable 07/29/21 17:21 [place] Rings Not Reportable 07/29/21 17:21 Kaden Cells Not Reportable 07/29/21 17:21 Bite Cells Not Reportable 07/29/21 17:21 Crenated Cell Not Reportable 07/29/21 17:21 Elliptocytes Not Reportable 07/29/21 17:21 Acanthocytes (Spur) Not Reportable 07/29/21 17:21 Rouleaux Not Reportable 07/29/21 17:21 Hemoglobin C Crystals Not Reportable 07/29/21 17:21 Schistocytes Not Reportable 07/29/21 17:21 Malaria parasites Not Reportable 07/29/21 17:21 Paul Bodies Not Reportable 07/29/21 17:21 Hem Pathologist Commnt No 07/29/21 17:21 Sodium 145 mmol/L (137-145) 07/30/21 06:12 Potassium 3.6 mmol/L (3.6-5.0) 07/30/21 06:12 Chloride 107.3 mmol/L (98-107) H 07/30/21 06:12 Carbon Dioxide 20 mmol/L (22-30) L 07/30/21 06:12 Anion Gap 21 mmol/L 07/30/21 06:12 BUN 29 mg/dL (7-17) H 07/30/21 06:12 Creatinine 0.8 mg/dL (0.6-1.2) 07/30/21 06:12 Estimated GFR > 60 ml/min 07/30/21 06:12 BUN/Creatinine Ratio 36 % 07/30/21 06:12 Glucose 85 mg/dL (65-100) 07/30/21 06:12 POC Glucose 104 mg/dL (70-105) 07/29/21 16:16 Lactic Acid 1.30 mmol/L (0.7-2.0) 07/29/21 17:21 Calcium 8.1 mg/dL (8.4-10.2) L 07/30/21 06:12 Total Bilirubin 0.30 mg/dL (0.1-1.2) 07/30/21 06:12 AST 20 units/L (5-40) 07/30/21 06:12 ALT 12 units/L (7-56) 07/30/21 06:12 Alkaline Phosphatase 86 units/L (35-129) 07/30/21 06:12 Troponin T 0.026 ng/mL (0.00-0.029) 07/29/21 17:21 Total Protein 6.2 g/dL (6.3-8.2) L 07/30/21 06:12 Albumin 2.7 g/dL (3.9-5) L 07/30/21 06:12 Albumin/Globulin Ratio 0.8 % 07/30/21 06:12 TSH 1.320 mlU/mL (0.270-4.200) 07/29/21 17:21 Free T4 1.51 ng/dL (0.76-1.46) H 07/29/21 17:21 Urine Color Jackie (Yellow) 07/29/21 17:53 Urine Turbidity Clear (Clear) 07/29/21 17:53 Urine pH 5.0 (5.0-7.0) 07/29/21 17:53 Ur Specific [place] 1.014 (1.003-1.030) 07/29/21 17:53 Urine Protein <15 mg/dl mg/dL (Negative) 07/29/21 17:53 Urine Glucose (UA) Neg mg/dL (Negative) 07/29/21 17:53 Urine Ketones Tr mg/dL (Negative) 07/29/21 17:53 Urine Blood Neg (Negative) 07/29/21 17:53 Urine Nitrite Neg (Negative) 07/29/21 17:53 Urine Bilirubin Neg (Negative) 07/29/21 17:53 Urine Urobilinogen < 2.0 mg/dL (<2.0) 07/29/21 17:53 Ur Leukocyte Esterase Neg (Negative) 07/29/21 17:53 Urine WBC (Auto) 4.0 /HPF (0.0-6.0) 07/29/21 17:53 Urine RBC (Auto) 4.0 /HPF (0.0-6.0) 07/29/21 17:53 U Epithel Cells (Auto) < 1.0 /HPF (0-13.0) 07/29/21 17:53 Urine Mucus Few /HPF 07/29/21 17:53 Microbiology: Microbiology 07/29/21 17:21 Peripheral/Venous Blood Culture - Preliminary NO GROWTH AFTER 48 HOURS 07/29/21 Unknown Buttock Wound Culture - Preliminary Gram Negative Tom 07/31/21 Unknown Wound - Deep Surgical Culture - Preliminary Patiño/IV: Voiding Method Indwelling Catheter Active Medications - Current Medications Current Medications: Generic Name Dose Route Start Last Admin Trade Name Freq PRN Reason Stop Dose Admin Acetaminophen 650 mg 07/29/21 21:04 Acetaminophen 325 Mg Tab PO Q4H PRN Pain MILD(1-3)/Fever >100.5/SCOTT Baclofen 10 mg 07/30/21 08:00 07/31/21 20:35 Baclofen 10 Mg Tab PO 10 mg TID GOLDIE Administration Hydromorphone HCl 0.5 mg 07/29/21 21:04 07/31/21 00:33 Hydromorphone 1 Mg/1 Ml Inj IV 0.5 mg Q3H PRN Administration Pain , Severe (7-10) Sodium Chloride 1,000 mls @ 75 mls/hr 07/29/21 21:15 07/31/21 00:25 Nacl 0.9% 1000 Ml IV 75 mls/hr DIRECT GOLDIE Administration Ampicillin Sodium/Sulbactam Sodium 3 gm in 100 mls @ 100 mls/hr 07/30/21 00:00 08/01/21 05:57 Unasyn/Ns 3 Gm/100 Ml IV 100 mls/hr Q6HR GOLDIE Administration Protocol Vancomycin HCl 1 gm in 250 mls @ 166.667 mls/hr 07/30/21 10:00 07/31/21 22:07 Vancomycin/Ns 1 Gm/250 Ml IV 166.667 mls/hr Q12H GOLDIE Administration Metoclopramide HCl 10 mg 07/29/21 21:04 Metoclopramide 10 Mg/2 Ml Inj IV Q6H PRN Nausea And Vomiting Metoprolol Tartrate 12.5 mg 07/29/21 22:00 07/31/21 22:10 Metoprolol Tartrate 25 Mg Tab PO Not Given BID GOLDIE Ondansetron HCl 4 mg 07/29/21 21:04 Ondansetron 4 Mg/2 Ml Inj IV Q3H PRN Nausea And Vomiting Oxybutynin Chloride 15 mg 07/30/21 10:00 07/31/21 12:25 Oxybutynin 5 Mg Tab PO Not Given QDAY GOLDEI Oxycodone/Acetaminophen 1 tab 07/29/21 21:04 07/31/21 22:33 Oxycodone /Acetaminophen 5-325mg Tab PO 1 tab Q6H PRN Administration Pain, Moderate (4-6) Sodium Chloride 10 ml 07/29/21 22:00 07/31/21 22:07 Sodium Chloride 0.9% 10 Ml Flush Syringe IV 10 ml BID GOLDIE Administration Sodium Chloride 10 ml 07/29/21 21:04 Sodium Chloride 0.9% 10 Ml Flush Syringe IV PRN PRN LINE FLUSH Sodium Hypochlorite 1 applic 08/01/21 08:00 Sodium Hypochlorite, Dakin's 1/2 Strength (0.25%) 473 Ml Topical Soln TP Q12H PRN Wound Care Venlafaxine HCl 37.5 mg 07/30/21 10:00 07/31/21 12:25 Venlafaxine 37.5 Mg Tab PO Not Given QDAY GOLDIE Nutrition/Malnutrition Assess - Dietary Evaluation Nutrition/Malnutrition Findings: Nutrition Notes Start: 07/30/21 15:13 Freq: Status: Active Protocol: Document 07/30/21 15:13 RS (Rec: 07/30/21 15:32 RS [id number]) Nutrition Notes Need for Assessment generated from: MD Order Initial or Follow up Assessment Current Diagnosis Decubitus(Pressure Ulcer), Sepsis,Hypertension, Malnutrition Other Pertinent Diagnosis MS, Sacral Ulcer Stage IV, Encephalopathy Current Diet Cardiac Diet + Dietary Supplements Labs/Tests Cl: 107.3 CO2: 20 BUN:29 Pertinent Medications NaCl 0.9% at 75mL/hr Height 5 ft 2 in Weight 68.039 kg [place] Body Weight (kg) 50.00 BMI 27.4 Weight change and time frame AMEE at this time Weight Status Appropriate Subjective/Other Information MD consult for ordered dietary supplements. RD amee this pt hx d/t encephalopathy. Pt lives at SNF and is adm d/t foul smell from stage IV sacral ulcer. Pt unable to perform harness fitter strength test and had severe weakness in LE and mild weakness in UE. RD noted some mild clavical wasting. No signifcant temporal wasting observed by RD. RD observed negliable amount of food tray consumed and one ONS unopened. RD to continue to reinforce compliance with ONS TID w meals. 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 No Is Patient Ambulatory and/or Out of Bed No REE-([place]-confined to bed) 1413.888 Kcal/Kg value to use for calculation 26 Approximate Energy Requirements Using 1769 kcal/Kg Calculation Used for Recommendations Kcal/kg Additional Notes Pro needs: 68-82g/day (1-1.2g/ kgBW/day) Fluid needs:1mL/kcal or per MD Nutrition Intervention Add Supplement/Snack (indicate name/kcal Ensure Enlive Vanilla + /protein ) [place] TID Provides kCal: 1,050 Provides Protein (gm) 60 Goal #1 Pt will meet 75% of kcal/PRO needs via PO intake/ONS Anticipated Discharge Needs: Cardiac Diet +ONS Follow-Up By: 08/01/21 Additional Comments F/U for intakes, appetite levels, ONS tolerance
[2021-08-01] MEDS: OXYBUTYNIN 5 MG TAB PO SCH (09:27)
[2021-08-01] MEDS: VENLAFAXINE 37.5 MG TAB PO SCH (09:28)
[2021-08-01] MEDS: METOPROLOL TARTRATE 25 MG TAB PO SCH ×2 (09:28→22:04)
[2021-08-01] MEDS: VANCOMYCIN/NS 1 GM/250 ML 1 GM/250 ML BAG IV SCH ×2 (09:30→10:25)
--- NOTE | 2021-08-01 12:32 | Progress Note ---
History Interval history: 66 YO Female HD #2 with Sepsis secondary to Infected Sacral Decubitus Ulcer present on admission, Encephalopathy, MS, HTN, Malnutrition, Anemia of Chronic Disease Assessment and Plan Advance Directives: Yes (Full code) VTE prophylaxis?: Chemical Plan of care discussed with patient/family: Yes - Patient Problems (1) Acute encephalopathy Current Visit: No Status: Acute Plan to address problem: Altered sensorium was transient (2) Sepsis Current Visit: Yes Status: Acute Qualifiers: Severe sepsis shock status: without septic shock Plan to address problem: Sepsis secondary to sacral decubitus ulcer patient started on IV Unasyn and vancomycin Surgical consult Possible debridement (3) Sacral decubitus ulcer, stage IV Current Visit: Yes Status: Chronic Plan to address problem: patient started on IV Unasyn and vancomycin Surgical consult Possible debridement (4) Multiple sclerosis Current Visit: No Status: Chronic Plan to address problem: Patient has bilateral lower extremity weakness Physical therapy may not be helpful but will request evaluation (5) Hypertension Current Visit: No Status: Chronic Qualifiers: Hypertension type: primary hypertension Qualified Code(s): I10 - Essential (primary) hypertension Plan to address problem: Continue antihypertensives (6) Urinary incontinence Current Visit: Yes Status: Chronic Qualifiers: Urinary Incontinence type: stress incontinence Qualified Code(s): N39.3 - Stress incontinence (female) (male) Plan to address problem: Patient on oxybutynin (7) Malnutrition Current Visit: Yes Status: Chronic Qualifiers: Protein-calorie malnutrition severity: moderate Plan to address problem: Dietary surveillance initiated (8) Anemia of chronic disease Current Visit: Yes Status: Chronic Plan to address problem: Anemia work-up (9) Advance care planning Current Visit: Yes Status: Acute Plan to address problem: Disease education conducted, care plan discussed, diagnosis discussed, prognosis discussed. Patient is full code. Patient acknowledges understanding and agreement with care plan. +30 minutes. (10) DVT prophylaxis Current Visit: Yes Status: Acute Plan to address problem: On anticoagulation and GI prophylaxis Hospitalist Physical - Constitutional Vitals: Temp Pulse Resp BP Pulse Ox 98.2 F 93 H 18 127/57 91 08/01/21 04:52 08/01/21 09:28 08/01/21 04:52 08/01/21 09:28 08/01/21 04:52 General appearance: Present: no acute distress, well-nourished HEART Score - HEART Score Troponin: Troponin T 0.026 ng/mL (0.00-0.029) 07/29/21 17:21 Results - Labs CBC & Chem 7: 07/30/21 06:12 07/30/21 06:12 Labs: Laboratory Last Values WBC 15.4 K/mm3 (4.5-11.0) H 07/30/21 06:12 RBC 3.15 M/mm3 (3.65-5.03) L 07/30/21 06:12 Hgb 7.6 gm/dl (10.1-14.3) L 07/30/21 06:12 Hct 24.5 % (30.3-42.9) L 07/30/21 06:12 MCV 78 fl (79-97) L 07/30/21 06:12 MCH 24 pg (28-32) L 07/30/21 06:12 MCHC 31 % (30-34) 07/30/21 06:12 RDW 19.4 % (13.2-15.2) H 07/30/21 06:12 Plt Count 431 K/mm3 (140-440) 07/30/21 06:12 Lymph % (Auto) 12.7 % (13.4-35.0) L 07/30/21 06:12 [place] % (Auto) 7.6 % (0.0-7.3) H 07/30/21 06:12 Eos % (Auto) 0.2 % (0.0-4.3) 07/30/21 06:12 Baso % (Auto) 0.4 % (0.0-1.8) 07/30/21 06:12 Lymph # (Auto) 2.0 K/mm3 (1.2-5.4) 07/30/21 06:12 [place] # (Auto) 1.2 K/mm3 (0.0-0.8) H 07/30/21 06:12 Eos # (Auto) 0.0 K/mm3 (0.0-0.4) 07/30/21 06:12 Baso # (Auto) 0.1 K/mm3 (0.0-0.1) 07/30/21 06:12 Add Manual Diff Complete 07/29/21 17:21 Total Counted 100 07/29/21 17:21 Seg Neutrophils % 79.1 % (40.0-70.0) H 07/30/21 06:12 Seg Neuts % (Manual) 94.0 % (40.0-70.0) H 07/29/21 17:21 Band Neutrophils % 0 % 07/29/21 17:21 Lymphocytes % (Manual) 5.0 % (13.4-35.0) L 07/29/21 17:21 Reactive Lymphs % (Man) 0 % 07/29/21 17:21 Monocytes % (Manual) 1.0 % (0.0-7.3) 07/29/21 17:21 Eosinophils % (Manual) 0 % (0.0-4.3) 07/29/21 17:21 Basophils % (Manual) 0 % (0.0-1.8) 07/29/21 17:21 Metamyelocytes % 0 % 07/29/21 17:21 Myelocytes % 0 % 07/29/21 17:21 Promyelocytes % 0 % 07/29/21 17:21 Blast Cells % 0 % 07/29/21 17:21 Nucleated RBC % Not Reportable 07/29/21 17:21 Seg Neutrophils # 12.2 K/mm3 (1.8-7.7) H 07/30/21 06:12 Seg Neutrophils # Man 20.8 K/mm3 (1.8-7.7) H 07/29/21 17:21 Band Neutrophils # 0.0 K/mm3 07/29/21 17:21 Lymphocytes # (Manual) 1.1 K/mm3 (1.2-5.4) L 07/29/21 17:21 Abs React Lymphs (Man) 0.0 K/mm3 07/29/21 17:21 Monocytes # (Manual) 0.2 K/mm3 (0.0-0.8) 07/29/21 17:21 Eosinophils # (Manual) 0.0 K/mm3 (0.0-0.4) 07/29/21 17:21 Basophils # (Manual) 0.0 K/mm3 (0.0-0.1) 07/29/21 17:21 Metamyelocytes # 0.0 K/mm3 07/29/21 17:21 Myelocytes # 0.0 K/mm3 07/29/21 17:21 Promyelocytes # 0.0 K/mm3 07/29/21 17:21 Blast Cells # 0.0 K/mm3 07/29/21 17:21 WBC Morphology Not Reportable 07/29/21 17:21 Hypersegmented Neuts Not Reportable 07/29/21 17:21 Hyposegmented Neuts Not Reportable 07/29/21 17:21 Hypogranular Neuts Not Reportable 07/29/21 17:21 Smudge Cells Not Reportable 07/29/21 17:21 Toxic Granulation 1+ 07/29/21 17:21 Toxic Vacuolation Not Reportable 07/29/21 17:21 Dohle Bodies Not Reportable 07/29/21 17:21 Pelger-Huet Anomaly Not Reportable 07/29/21 17:21 Kaylah Rods Not Reportable 07/29/21 17:21 Platelet Estimate Consistent w auto 07/29/21 17:21 Clumped Platelets Not Reportable 07/29/21 17:21 Plt Clumps, EDTA Not Reportable 07/29/21 17:21 Large Platelets Not Reportable 07/29/21 17:21 Giant Platelets Not Reportable 07/29/21 17:21 Platelet Satelliting Not Reportable 07/29/21 17:21 Plt Morphology Comment Not Reportable 07/29/21 17:21 RBC Morphology Not Reportable 07/29/21 17:21 Dimorphic RBCs Not Reportable 07/29/21 17:21 Polychromasia Not Reportable 07/29/21 17:21 Hypochromasia 1+ 07/29/21 17:21 Poikilocytosis Not Reportable 07/29/21 17:21 Anisocytosis Not Reportable 07/29/21 17:21 Microcytosis Not Reportable 07/29/21 17:21 Macrocytosis Not Reportable 07/29/21 17:21 Spherocytes Not Reportable 07/29/21 17:21 Pappenheimer Bodies Not Reportable 07/29/21 17:21 Sickle Cells Not Reportable 07/29/21 17:21 Target Cells Not Reportable 07/29/21 17:21 Tear Drop Cells Not Reportable 07/29/21 17:21 Ovalocytes Not Reportable 07/29/21 17:21 Helmet Cells Not Reportable 07/29/21 17:21 Rothman-Mal[place] Bodies Not Reportable 07/29/21 17:21 [place] Rings Not Reportable 07/29/21 17:21 Kaden Cells Not Reportable 07/29/21 17:21 Bite Cells Not Reportable 07/29/21 17:21 Crenated Cell Not Reportable 07/29/21 17:21 Elliptocytes Not Reportable 07/29/21 17:21 Acanthocytes (Spur) Not Reportable 07/29/21 17:21 Rouleaux Not Reportable 07/29/21 17:21 Hemoglobin C Crystals Not Reportable 07/29/21 17:21 Schistocytes Not Reportable 07/29/21 17:21 Malaria parasites Not Reportable 07/29/21 17:21 Paul Bodies Not Reportable 07/29/21 17:21 Hem Pathologist Commnt No 07/29/21 17:21 Sodium 145 mmol/L (137-145) 07/30/21 06:12 Potassium 3.6 mmol/L (3.6-5.0) 07/30/21 06:12 Chloride 107.3 mmol/L (98-107) H 07/30/21 06:12 Carbon Dioxide 20 mmol/L (22-30) L 07/30/21 06:12 Anion Gap 21 mmol/L 07/30/21 06:12 BUN 29 mg/dL (7-17) H 07/30/21 06:12 Creatinine 0.8 mg/dL (0.6-1.2) 07/30/21 06:12 Estimated GFR > 60 ml/min 07/30/21 06:12 BUN/Creatinine Ratio 36 % 07/30/21 06:12 Glucose 85 mg/dL (65-100) 07/30/21 06:12 POC Glucose 104 mg/dL (70-105) 07/29/21 16:16 Lactic Acid 1.30 mmol/L (0.7-2.0) 07/29/21 17:21 Calcium 8.1 mg/dL (8.4-10.2) L 07/30/21 06:12 Total Bilirubin 0.30 mg/dL (0.1-1.2) 07/30/21 06:12 AST 20 units/L (5-40) 07/30/21 06:12 ALT 12 units/L (7-56) 07/30/21 06:12 Alkaline Phosphatase 86 units/L (35-129) 07/30/21 06:12 Troponin T 0.026 ng/mL (0.00-0.029) 07/29/21 17:21 Total Protein 6.2 g/dL (6.3-8.2) L 07/30/21 06:12 Albumin 2.7 g/dL (3.9-5) L 07/30/21 06:12 Albumin/Globulin Ratio 0.8 % 07/30/21 06:12 TSH 1.320 mlU/mL (0.270-4.200) 07/29/21 17:21 Free T4 1.51 ng/dL (0.76-1.46) H 07/29/21 17:21 Urine Color Jackie (Yellow) 07/29/21 17:53 Urine Turbidity Clear (Clear) 07/29/21 17:53 Urine pH 5.0 (5.0-7.0) 07/29/21 17:53 Ur Specific [place] 1.014 (1.003-1.030) 07/29/21 17:53 Urine Protein <15 mg/dl mg/dL (Negative) 07/29/21 17:53 Urine Glucose (UA) Neg mg/dL (Negative) 07/29/21 17:53 Urine Ketones Tr mg/dL (Negative) 07/29/21 17:53 Urine Blood Neg (Negative) 07/29/21 17:53 Urine Nitrite Neg (Negative) 07/29/21 17:53 Urine Bilirubin Neg (Negative) 07/29/21 17:53 Urine Urobilinogen < 2.0 mg/dL (<2.0) 07/29/21 17:53 Ur Leukocyte Esterase Neg (Negative) 07/29/21 17:53 Urine WBC (Auto) 4.0 /HPF (0.0-6.0) 07/29/21 17:53 Urine RBC (Auto) 4.0 /HPF (0.0-6.0) 07/29/21 17:53 U Epithel Cells (Auto) < 1.0 /HPF (0-13.0) 07/29/21 17:53 Urine Mucus Few /HPF 07/29/21 17:53 Microbiology: Microbiology 07/29/21 Unknown Buttock Wound Culture - Final Proteus Mirabilis 07/31/21 Unknown Wound - Deep Surgical Culture - Preliminary Enterococcus Species 07/29/21 17:21 Peripheral/Venous Blood Culture - Preliminary NO GROWTH AFTER 48 HOURS Patiño/IV: Voiding Method Indwelling Catheter Active Medications - Current Medications Current Medications: Generic Name Dose Route Start Last Admin Trade Name Freq PRN Reason Stop Dose Admin Acetaminophen 650 mg 07/29/21 21:04 Acetaminophen 325 Mg Tab PO Q4H PRN Pain MILD(1-3)/Fever >100.5/SCOTT Baclofen 10 mg 07/30/21 08:00 08/01/21 08:30 Baclofen 10 Mg Tab PO 10 mg TID GOLDIE Administration Hydromorphone HCl 0.5 mg 07/29/21 21:04 07/31/21 00:33 Hydromorphone 1 Mg/1 Ml Inj IV 0.5 mg Q3H PRN Administration Pain , Severe (7-10) Sodium Chloride 1,000 mls @ 75 mls/hr 07/29/21 21:15 07/31/21 00:25 Nacl 0.9% 1000 Ml IV 75 mls/hr DIRECT GOLDIE Administration Ampicillin Sodium/Sulbactam Sodium 3 gm in 100 mls @ 100 mls/hr 07/30/21 00:00 08/01/21 11:43 Unasyn/Ns 3 Gm/100 Ml IV 100 mls/hr Q6HR GOLDIE Administration Protocol Vancomycin HCl 1 gm in 250 mls @ 166.667 mls/hr 07/30/21 10:00 08/01/21 10:25 Vancomycin/Ns 1 Gm/250 Ml IV 166.667 mls/hr Q12H GOLDIE Administration Metoclopramide HCl 10 mg 07/29/21 21:04 Metoclopramide 10 Mg/2 Ml Inj IV Q6H PRN Nausea And Vomiting Metoprolol Tartrate 12.5 mg 07/29/21 22:00 08/01/21 09:28 Metoprolol Tartrate 25 Mg Tab PO 12.5 mg BID GOLDIE Administration Ondansetron HCl 4 mg 07/29/21 21:04 Ondansetron 4 Mg/2 Ml Inj IV Q3H PRN Nausea And Vomiting Oxybutynin Chloride 15 mg 07/30/21 10:00 08/01/21 09:27 Oxybutynin 5 Mg Tab PO 15 mg QDAY GOLDIE Administration Oxycodone/Acetaminophen 1 tab 07/29/21 21:04 07/31/21 22:33 Oxycodone /Acetaminophen 5-325mg Tab PO 1 tab Q6H PRN Administration Pain, Moderate (4-6) Sodium Chloride 10 ml 07/29/21 22:00 08/01/21 09:29 Sodium Chloride 0.9% 10 Ml Flush Syringe IV 10 ml BID GOLDIE Administration Sodium Chloride 10 ml 07/29/21 21:04 Sodium Chloride 0.9% 10 Ml Flush Syringe IV PRN PRN LINE FLUSH Sodium Hypochlorite 1 applic 08/01/21 08:00 Sodium Hypochlorite, Dakin's 1/2 Strength (0.25%) 473 Ml Topical Soln TP Q12H PRN Wound Care Venlafaxine HCl 37.5 mg 07/30/21 10:00 08/01/21 09:28 Venlafaxine 37.5 Mg Tab PO 37.5 mg QDAY GOLDIE Administration Nutrition/Malnutrition Assess - Dietary Evaluation Nutrition/Malnutrition Findings: Nutrition Notes Start: 07/30/21 15:13 Freq: Status: Active Protocol: Document 07/30/21 15:13 RS (Rec: 07/30/21 15:32 RS [id number]) Nutrition Notes Need for Assessment generated from: MD Order Initial or Follow up Assessment Current Diagnosis Decubitus(Pressure Ulcer), Sepsis,Hypertension, Malnutrition Other Pertinent Diagnosis MS, Sacral Ulcer Stage IV, Encephalopathy Current Diet Cardiac Diet + Dietary Supplements Labs/Tests Cl: 107.3 CO2: 20 BUN:29 Pertinent Medications NaCl 0.9% at 75mL/hr Height 5 ft 2 in Weight 68.039 kg [place] Body Weight (kg) 50.00 BMI 27.4 Weight change and time frame AMEE at this time Weight Status Appropriate Subjective/Other Information MD consult for ordered dietary supplements. RD amee this pt hx d/t encephalopathy. Pt lives at SNF and is adm d/t foul smell from stage IV sacral ulcer. 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 RD noted some mild clavical wasting. No signifcant temporal wasting observed by RD. RD observed negliable amount of food tray consumed and one ONS unopened. RD to continue to reinforce compliance with ONS TID w meals. 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 No Is Patient Ambulatory and/or Out of Bed No REE-([facility]-confined to bed) 1413.888 Kcal/Kg value to use for calculation 26 Approximate Energy Requirements Using 1769 kcal/Kg Calculation Used for Recommendations Kcal/kg Additional Notes Pro needs: 68-82g/day (1-1.2g/ kgBW/day) Fluid needs:1mL/kcal or per MD Nutrition Intervention Add Supplement/Snack (indicate name/kcal Ensure Enlive Vanilla + /protein ) [place] TID Provides kCal: 1,050 Provides Protein (gm) 60 Goal #1 Pt will meet 75% of kcal/PRO needs via PO intake/ONS Anticipated Discharge Needs: Cardiac Diet +ONS Follow-Up By: 08/01/21 Additional Comments F/U for intakes, appetite levels, ONS tolerance
--- NOTE | 2021-08-01 13:34 | Consultation ---
History of Present Illness - Reason for Consult Consult date: 08/01/21 necrotic sacral wound with ?osteomyelitis Requesting physician: ALFREDO ANDREW - History of Present Illness The patient is a 66-year-old female with multiple sclerosis, bedridden for the last few years, spends most of the time in bed or in a wheelchair was sent from the group home due to worsening sacral ulcer. According to the patient, sacral wound has been present for the last 1 month, was initially getting better but then got worse. She did not feel any fever or chills. Had no other symptoms. Upon evaluation, found to have a foul-smelling necrotic sacral decubitus ulcer for which general surgery was consulted and on 07/31/2021, underwent excisional debridement. Infectious diseases was consulted for antibiotic management. She has been afebrile. Labs revealed significant leukocytosis of 22.1 on admission with thrombocytosis. Review of Systems: General: no fevers,chills or rigors HEENT: no new visual disturbance Respiratory: No cough, sputum, hemoptysis or shortness of breath Cardiovascular: No chest pain, syncope Gastrointestinal: No nausea, vomiting or diarrhea Genitourinary: No dysuria or hematuria Musculoskeletal: No new or worsening neck pain or back pain Neurologic: No headaches, seizures Hematologic: No easy bruising or bleeding Endocrine: No night sweats or acute weight loss Skin: negative for rash, jaundice Psychiatric: No suicidal or homicidal ideation Past History Past Medical History: other (Multiple sclerosis, bedbound, chronic pain) Past Surgical History: Other (Unknown) Social history: other (Lives in group home) Family history: hypertension Medications and Allergies Allergies Allergy/AdvReac Type Severity Reaction Status Date / Time Sulfa (Sulfonamide Allergy Hives Verified 04/21/21 08:35 Antibiotics) Home Medications Medication Instructions Recorded Confirmed Last Taken Type Baclofen 20 mg PO TID 04/21/21 07/29/21 1 Day Ago History ~07/28/21 DOXYCYCLINE Hyclate [Vibramycin 100 mg PO BID #14 tab 04/21/21 07/29/21 1 Day Ago Rx CAP] ~07/28/21 Enoxaparin 90 mg SUB-Q Q12HR #3 syringe 04/21/21 07/29/21 1 Day Ago Rx ~07/28/21 Metoprolol [Lopressor TAB] 12.5 mg PO BID #60 tablet 04/21/21 07/29/21 1 Day Ago Rx ~07/28/21 Oxybutynin [Ditropan] 15 mg PO QDAY 04/21/21 07/29/21 1 Day Ago History ~07/28/21 Venlafaxine [Effexor 37.5mg tab] 37.5 mg PO QDAY 04/21/21 07/29/21 1 Day Ago History ~07/28/21 Active Meds: Active Medications Acetaminophen (Acetaminophen 325 Mg Tab) 650 mg PO Q4H PRN PRN Reason: Pain MILD(1-3)/Fever >100.5/SCOTT Baclofen (Baclofen 10 Mg Tab) 10 mg PO TID [facility] Last Admin: 08/01/21 13:14 Dose: 10 mg Hydromorphone HCl (Hydromorphone 1 Mg/1 Ml Inj) 0.5 mg IV Q3H PRN PRN Reason: Pain , Severe (7-10) Last Admin: 07/31/21 00:33 Dose: 0.5 mg Sodium Chloride (Nacl 0.9% 1000 Ml) 1,000 mls @ 75 mls/hr IV DIRECT [facility] Last Admin: 07/31/21 00:25 Dose: 75 mls/hr Ampicillin Sodium/Sulbactam Sodium (Unasyn/Ns 3 Gm/100 Ml) 3 gm in 100 mls @ 100 mls/hr IV Q6HR [facility]; Protocol Last Admin: 08/01/21 11:43 Dose: 100 mls/hr Metoclopramide HCl (Metoclopramide 10 Mg/2 Ml Inj) 10 mg IV Q6H PRN PRN Reason: Nausea And Vomiting Metoprolol Tartrate (Metoprolol Tartrate 25 Mg Tab) 12.5 mg PO BID [facility] Last Admin: 08/01/21 09:28 Dose: 12.5 mg Ondansetron HCl (Ondansetron 4 Mg/2 Ml Inj) 4 mg IV Q3H PRN PRN Reason: Nausea And Vomiting Oxybutynin Chloride (Oxybutynin 5 Mg Tab) 15 mg PO QDAY [facility] Last Admin: 08/01/21 09:27 Dose: 15 mg Oxycodone/Acetaminophen (Oxycodone /Acetaminophen 5-325mg Tab) 1 tab PO Q6H PRN PRN Reason: Pain, Moderate (4-6) Last Admin: 07/31/21 22:33 Dose: 1 tab Sodium Chloride (Sodium Chloride 0.9% 10 Ml Flush Syringe) 10 ml IV BID [facility] Last Admin: 08/01/21 09:29 Dose: 10 ml Sodium Chloride (Sodium Chloride 0.9% 10 Ml Flush Syringe) 10 ml IV PRN PRN PRN Reason: LINE FLUSH Sodium Hypochlorite (Sodium Hypochlorite, Dakin's 1/2 Strength (0.25%) 473 Ml Topical Soln) 1 applic TP Q12H PRN PRN Reason: Wound Care Venlafaxine HCl (Venlafaxine 37.5 Mg Tab) 37.5 mg PO QDAY [facility] Last Admin: 08/01/21 09:28 Dose: 37.5 mg Physical Examination - Physical Exam Narrative exam: Physical Exam: Constitutional: Alert, cooperative. No acute distress Head, Ears, Nose: Normocephalic, atraumatic. External ears, nose normal Eyes: Conjunctivae/corneas clear. No icterus. No ptosis. Neck: Supple, no meningeal signs Cardiovascular: S1, S2 + Respiratory: Good air entry, clear to auscultation bilaterally GI: Soft, non-tender; bowel sounds normal. No peritoneal signs Musculoskeletal: No pedal edema, no cyanosis. Sacral wound with dressing Skin: No rash or abscess Hem/Lymphatic: No palpable cervical or supraclavicular nodes. No lymphangitis Psych: Mood ok. Affect normal Neurological: Awake, alert, oriented. Paraplegic - Constitutional Vitals: Vital Signs Temp Pulse Resp BP Pulse Ox 98.2 F 93 H 18 127/57 91 08/01/21 04:52 08/01/21 09:28 08/01/21 04:52 08/01/21 09:28 08/01/21 04:52 Temperature -Last 24 Hours Temperature 98.2 F Temperature 98.5 F Temperature 98.4 F Results - Labs CBC & Chem 7: 07/30/21 06:12 07/30/21 06:12 - Imaging and Cardiology Chest x-ray: report reviewed, image reviewed (no pneumonia) Assessment and Plan Cultures: 07/29/2021 blood culture: GPR in 1 of 4 bottles 07/29/2021 buttock wound culture: Proteus mirabilis 07/31/2021 deep culture: Enterococcus species A/P: 66-year-old female with multiple sclerosis, bedridden for the last few years, spends most of the time in bed or in a wheelchair was sent from the group home due to worsening sacral ulcer: #Sepsis, secondary to necrotic sacral decubitus ulcer with likely associated osteomyelitis: Pathophysiology of the wound explained to the patient. Patient wears diapers and gets frequent urine as well as stool contamination. She declined a diverting colostomy to prevent fecal contamination. Due to the acute infectious process, will plan to treat with antimicrobials for about 2 to 3 weeks. Prolonged antibiotics unlikely to be of much benefit. She will need frequent offloading, nutritional optimization and wound care. #GPR bacteremia: 1 out of 4 bottles positive, suspect contaminant. #Multiple sclerosis, bedbound status #Protein calorie malnutrition Recs: -Follow-up blood and wound culture finalization -Continue IV Unasyn 3 g every 6 hours, anticipate 3 weeks of therapy -Vancomycin discontinued -Insert midline -need frequent offloading, nutritional optimization and wound care -avoidance of fecal contamination of the wound -CBC in AM -guarded prognosis Wil Lieberman MD, FACP, [facility] O: [phone] F: [phone] C: [phone]
[2021-08-01] MEDS: oxyCODONE /ACETAMINOPHEN 5-325MG TAB PO PRN (15:40)
--- NOTE | 2021-08-01 15:43 | Progress Note ---
Assessment and Plan 66-year-old female status post excisional debridement of infected sacral pressure ulcer, postop day 1 1.infected unstageable sacral decubitus ulcer 2. bedbound 2/2 MS 3. protein calorie malnutrition Plan: 1. reg diet with supplements 2. gentle IVF 3. IV abx per ID - recs appreciated 4. prn PO pain control 5. offloading of sacrum and b/l heels 6. Twice daily sacral wound dressing changes with Dakin's -> RN orders placed 7. Will likely need wound VAC placed at [facility] once infection is controlled 8. Patient may follow-up in the wound care center in 7 days upon discharge -> [address]. [phone] Thank you. Please call with any questions or concerns. Subjective Date of service: 08/01/21 Narrative: Patient seen and examined. Complains of pain in her sacral region. No fevers or chills. Objective Vital Signs - 12hr 08/01/21 08/01/21 08/01/21 04:52 09:28 10:00 Temperature 98.2 F Pulse Rate 101 H 93 H Respiratory 18 Rate Blood Pressure 107/48 127/57 O2 Sat by Pulse 91 96 Oximetry 08/01/21 11:11 Temperature 98.4 F Pulse Rate 94 H Respiratory 20 Rate Blood Pressure 118/52 O2 Sat by Pulse 98 Oximetry - General physical appearance Narrative Exam: Gen.: Awake, alert, oriented x3. No apparent distress ENT: Trachea midline. No lymphadenopathy. No scleral icterus or conjunctival pallor CV: S1, S2 present Respiratory: No audible wheezes Extremities: No clubbing, cyanosis, edema Sacrum: Dressing removed and 1 piece of Kerlix packing removed from wound. The wound is overall clean with mild odor. There are some slough adherent to the surface of the wound. The wound was packed with 2 pieces of Dakin's moistened 4 x 4 gauze. This was covered with dry 4 x 4 gauze and secured with a sacral foam dressing. - Labs 07/30/21 06:12 07/30/21 06:12
[2021-08-01] MEDS ORDERED: SODIUM CHLORIDE 0.45% 1000 ML 1,000 ML IV SCH (17:00)
[2021-08-01] MEDS ORDERED: traZODone 50 MG TAB PO SCH (22:00)
[2021-08-02 05:37] LABS: Hemoglobin 6.2 gm/dl (10.1-14.3); Mean Corpuscular HGB Conc 34 % (30-34); Mean Corpuscular Volume 76 fl (79-97); Platelet Count 465 K/mm3 (140-440); Red Blood Count 2.44 M/mm3 (3.65-5.03); Red Cell Distribution Width 19.3 % (13.2-15.2)
[2021-08-02] MEDS: AMPICILLIN/SULBACTA 3GM/100ML 3 GM/100 ML BAG IV SCH ×2 (05:42→13:43)
[2021-08-02 05:46] LABS: Hematocrit 18.6 % (30.3-42.9)
[2021-08-02] MEDS ORDERED: SODIUM CHLORIDE 0.9% 500 ML 500 ML IV ONE (06:41)
[2021-08-02 06:57] LABS: Anisocytosis 1+; Hypochromasia 1+; Large Platelets Few; Monocytes % (Manual) 0 % (0.0-7.3); Myelocytes # (Manual) 0.2 K/mm3; Platelet Estimate Consistent w Auto; Total Cells Counted 100
[2021-08-02] MEDS ORDERED: SODIUM CHLORIDE 0.9% 500 ML 500 ML ONE (08:54)
--- NOTE | 2021-08-02 08:55 | Progress Note ---
Assessment and Plan Assessment and plan: 66-year-old female with a history of multiple sclerosis who is bedbound. [facility] and was [facility] from the penitentiary to the hospital for altered mental status and evaluation of a sacral decubitus ulcer. Patient states she has been in the penitentiary since February of last year and does not have a history of a sacral wound prior. During evaluation in the emergency room patient was noted to have a foul-smelling necrotic sacral decubitus ulcer for which surgery was consulted. Infected unstageable sacral decubitus ulcer ABLA. Bedbound status secondary to multiple sclerosis Multiple sclerosis Protein calorie malnutrition Sepsis. Toxic metabolic encephalopathy 08/01/2021. Patient is s/p debridement with surgery. Continue offloading of sacrum and bilateral heels. Continue IV antibiotics and consult ID for further evaluation. Continue appropriate pain control. 08/02/2021. Continue IV antibiotics per ID recommendations for 3 weeks of therapy. Follow-up blood and wound culture results. Continue frequent offloading and nutritional optimization for wound healing. Patient refuses diverting colostomy to avoid fecal contamination of wound. Continue p.o. medications for pain control. Continue twice daily sacral wound dressing changes with Dakin's per wound care. The patient will likely need a wound VAC placed [facility] once infection is controlled. Patient is to follow-up with wound care center in 7 days upon discharge. I suspect ABLA is likely from recent debridement. Type and cross and transfuse PRBCs. Follow-up H&H. History Interval history: No new issues overnight Hospitalist Physical - Constitutional Vitals: Temp Pulse Resp BP Pulse Ox 99.4 F 98 H 18 129/62 94 08/02/21 03:45 08/02/21 03:45 08/02/21 03:45 08/02/21 03:45 08/02/21 03:45 General appearance: Present: no acute distress, well-nourished - EENT Eyes: Present: PERRL, EOM intact ENT: hearing intact, clear oral mucosa, dentition normal - Neck Neck: Present: supple, normal ROM - Respiratory Respiratory effort: normal Respiratory: bilateral: CTA - Cardiovascular Rhythm: regular Heart Sounds: Present: S1 & S2. Absent: gallop, rub - Extremities Extremities: no ischemia, No edema, Full ROM - Abdominal General gastrointestinal: soft, non-tender, non-distended, normal bowel sounds - Integumentary Integumentary: Present: clear, warm, dry - Neurologic Neurologic: CNII-XII intact, moves all extremities HEART Score - HEART Score Troponin: Troponin T 0.026 ng/mL (0.00-0.029) 07/29/21 17:21 Results - Labs CBC & Chem 7: 08/02/21 04:53 07/30/21 06:12 Labs: Laboratory Last Values WBC 10.6 K/mm3 (4.5-11.0) 08/02/21 04:53 RBC 2.44 M/mm3 (3.65-5.03) L 08/02/21 04:53 Hgb 6.2 gm/dl (10.1-14.3) L 08/02/21 04:53 Hct 18.6 % (30.3-42.9) L* 08/02/21 04:53 MCV 76 fl (79-97) L 08/02/21 04:53 MCH 26 pg (28-32) L 08/02/21 04:53 MCHC 34 % (30-34) 08/02/21 04:53 RDW 19.3 % (13.2-15.2) H 08/02/21 04:53 Plt Count 465 K/mm3 (140-440) H 08/02/21 04:53 Lymph % (Auto) 12.7 % (13.4-35.0) L 07/30/21 06:12 Becker % (Auto) 7.6 % (0.0-7.3) H 07/30/21 06:12 Eos % (Auto) 0.2 % (0.0-4.3) 07/30/21 06:12 Baso % (Auto) 0.4 % (0.0-1.8) 07/30/21 06:12 Lymph # (Auto) 2.0 K/mm3 (1.2-5.4) 07/30/21 06:12 Becker # (Auto) 1.2 K/mm3 (0.0-0.8) H 07/30/21 06:12 Eos # (Auto) 0.0 K/mm3 (0.0-0.4) 07/30/21 06:12 Baso # (Auto) 0.1 K/mm3 (0.0-0.1) 07/30/21 06:12 Add Manual Diff Complete 08/02/21 04:53 Total Counted 100 08/02/21 04:53 Seg Neutrophils % 79.1 % (40.0-70.0) H 07/30/21 06:12 Seg Neuts % (Manual) 71.0 % (40.0-70.0) H 08/02/21 04:53 Band Neutrophils % 0 % 08/02/21 04:53 Lymphocytes % (Manual) 22.0 % (13.4-35.0) 08/02/21 04:53 Reactive Lymphs % (Man) 0 % 08/02/21 04:53 Monocytes % (Manual) 0 % (0.0-7.3) 08/02/21 04:53 Eosinophils % (Manual) 2.0 % (0.0-4.3) 08/02/21 04:53 Basophils % (Manual) 2.0 % (0.0-1.8) H 08/02/21 04:53 Metamyelocytes % 1.0 % 08/02/21 04:53 Myelocytes % 2.0 % 08/02/21 04:53 Promyelocytes % 0 % 08/02/21 04:53 Blast Cells % 0 % 08/02/21 04:53 Nucleated RBC % Not Reportable 08/02/21 04:53 Seg Neutrophils # 12.2 K/mm3 (1.8-7.7) H 07/30/21 06:12 Seg Neutrophils # Man 7.5 K/mm3 (1.8-7.7) 08/02/21 04:53 Band Neutrophils # 0.0 K/mm3 08/02/21 04:53 Lymphocytes # (Manual) 2.3 K/mm3 (1.2-5.4) 08/02/21 04:53 Abs React Lymphs (Man) 0.0 K/mm3 08/02/21 04:53 Monocytes # (Manual) 0.0 K/mm3 (0.0-0.8) 08/02/21 04:53 Eosinophils # (Manual) 0.2 K/mm3 (0.0-0.4) 08/02/21 04:53 Basophils # (Manual) 0.2 K/mm3 (0.0-0.1) H 08/02/21 04:53 Metamyelocytes # 0.1 K/mm3 08/02/21 04:53 Myelocytes # 0.2 K/mm3 08/02/21 04:53 Promyelocytes # 0.0 K/mm3 08/02/21 04:53 Blast Cells # 0.0 K/mm3 08/02/21 04:53 WBC Morphology Not Reportable 08/02/21 04:53 Hypersegmented Neuts Not Reportable 08/02/21 04:53 Hyposegmented Neuts Not Reportable 08/02/21 04:53 Hypogranular Neuts Not Reportable 08/02/21 04:53 Smudge Cells Not Reportable 08/02/21 04:53 Toxic Granulation Not Reportable 08/02/21 04:53 Toxic Vacuolation Not Reportable 08/02/21 04:53 Dohle Bodies Not Reportable 08/02/21 04:53 Pelger-Huet Anomaly Not Reportable 08/02/21 04:53 Kaylah Rods Not Reportable 08/02/21 04:53 Platelet Estimate Consistent w auto 08/02/21 04:53 Clumped Platelets Not Reportable 08/02/21 04:53 Plt Clumps, EDTA Not Reportable 08/02/21 04:53 Large Platelets Few 08/02/21 04:53 Giant Platelets Not Reportable 08/02/21 04:53 Platelet Satelliting Not Reportable 08/02/21 04:53 Plt Morphology Comment Not Reportable 08/02/21 04:53 RBC Morphology Not Reportable 08/02/21 04:53 Dimorphic RBCs Not Reportable 08/02/21 04:53 Polychromasia Not Reportable 08/02/21 04:53 Hypochromasia 1+ 08/02/21 04:53 Poikilocytosis Not Reportable 08/02/21 04:53 Anisocytosis 1+ 08/02/21 04:53 Microcytosis Not Reportable 08/02/21 04:53 Macrocytosis Not Reportable 08/02/21 04:53 Spherocytes Not Reportable 08/02/21 04:53 Pappenheimer Bodies Not Reportable 08/02/21 04:53 Sickle Cells Not Reportable 08/02/21 04:53 Target Cells Not Reportable 08/02/21 04:53 Tear Drop Cells Not Reportable 08/02/21 04:53 Ovalocytes Not Reportable 08/02/21 04:53 Helmet Cells Not Reportable 08/02/21 04:53 Rothman-Fallston Bodies Not Reportable 08/02/21 04:53 Batson Rings Not Reportable 08/02/21 04:53 [place] Cells Not Reportable 08/02/21 04:53 Bite Cells Not Reportable 08/02/21 04:53 Crenated Cell Not Reportable 08/02/21 04:53 Elliptocytes Not Reportable 08/02/21 04:53 Acanthocytes (Spur) Not Reportable 08/02/21 04:53 Rouleaux Not Reportable 08/02/21 04:53 Hemoglobin C Crystals Not Reportable 08/02/21 04:53 Schistocytes Not Reportable 08/02/21 04:53 Malaria parasites Not Reportable 08/02/21 04:53 Paul Bodies Not Reportable 08/02/21 04:53 Hem Pathologist Commnt No 08/02/21 04:53 Sodium 145 mmol/L (137-145) 07/30/21 06:12 Potassium 3.6 mmol/L (3.6-5.0) 07/30/21 06:12 Chloride 107.3 mmol/L (98-107) H 07/30/21 06:12 Carbon Dioxide 20 mmol/L (22-30) L 07/30/21 06:12 Anion Gap 21 mmol/L 07/30/21 06:12 BUN 29 mg/dL (7-17) H 07/30/21 06:12 Creatinine 0.8 mg/dL (0.6-1.2) 07/30/21 06:12 Estimated GFR > 60 ml/min 07/30/21 06:12 BUN/Creatinine Ratio 36 % 07/30/21 06:12 Glucose 85 mg/dL (65-100) 07/30/21 06:12 POC Glucose 104 mg/dL (70-105) 07/29/21 16:16 Lactic Acid 1.30 mmol/L (0.7-2.0) 07/29/21 17:21 Calcium 8.1 mg/dL (8.4-10.2) L 07/30/21 06:12 Total Bilirubin 0.30 mg/dL (0.1-1.2) 07/30/21 06:12 AST 20 units/L (5-40) 07/30/21 06:12 ALT 12 units/L (7-56) 07/30/21 06:12 Alkaline Phosphatase 86 units/L (35-129) 07/30/21 06:12 Troponin T 0.026 ng/mL (0.00-0.029) 07/29/21 17:21 Total Protein 6.2 g/dL (6.3-8.2) L 07/30/21 06:12 Albumin 2.7 g/dL (3.9-5) L 07/30/21 06:12 Albumin/Globulin Ratio 0.8 % 07/30/21 06:12 TSH 1.320 mlU/mL (0.270-4.200) 07/29/21 17:21 Free T4 1.51 ng/dL (0.76-1.46) H 07/29/21 17:21 Urine Color Jackie (Yellow) 07/29/21 17:53 Urine Turbidity Clear (Clear) 07/29/21 17:53 Urine pH 5.0 (5.0-7.0) 07/29/21 17:53 Ur Specific [place] 1.014 (1.003-1.030) 07/29/21 17:53 Urine Protein <15 mg/dl mg/dL (Negative) 07/29/21 17:53 Urine Glucose (UA) Neg mg/dL (Negative) 07/29/21 17:53 Urine Ketones Tr mg/dL (Negative) 07/29/21 17:53 Urine Blood Neg (Negative) 07/29/21 17:53 Urine Nitrite Neg (Negative) 07/29/21 17:53 Urine Bilirubin Neg (Negative) 07/29/21 17:53 Urine Urobilinogen < 2.0 mg/dL (<2.0) 07/29/21 17:53 Ur Leukocyte Esterase Neg (Negative) 07/29/21 17:53 Urine WBC (Auto) 4.0 /HPF (0.0-6.0) 07/29/21 17:53 Urine RBC (Auto) 4.0 /HPF (0.0-6.0) 07/29/21 17:53 U Epithel Cells (Auto) < 1.0 /HPF (0-13.0) 07/29/21 17:53 Urine Mucus Few /HPF 07/29/21 17:53 Blood Type AB POSITIVE 08/02/21 06:44 Antibody Screen Negative 08/02/21 06:44 Crossmatch See Detail 08/02/21 06:44 Microbiology: Microbiology 07/29/21 17:21 Peripheral/Venous Blood Culture - Preliminary Coag Negative Staphylococcus 07/29/21 17:21 Peripheral/Venous Blood Culture - Preliminary NO GROWTH AFTER 72 HOURS 07/29/21 Unknown Buttock Wound Culture - Final Proteus Mirabilis 07/31/21 Unknown Wound - Deep Surgical Culture - Preliminary Enterococcus Species Patiño/IV: Voiding Method Indwelling Catheter Active Medications - Current Medications Current Medications: Generic Name Dose Route Start Last Admin Trade Name Freq PRN Reason Stop Dose Admin Acetaminophen 650 mg 07/29/21 21:04 Acetaminophen 325 Mg Tab PO Q4H PRN Pain MILD(1-3)/Fever >100.5/SCOTT Baclofen 10 mg 07/30/21 08:00 08/01/21 20:41 Baclofen 10 Mg Tab PO 10 mg TID GOLDIE Administration Hydromorphone HCl 0.5 mg 07/29/21 21:04 07/31/21 00:33 Hydromorphone 1 Mg/1 Ml Inj IV 0.5 mg Q3H PRN Administration Pain , Severe (7-10) Ampicillin Sodium/Sulbactam Sodium 3 gm in 100 mls @ 100 mls/hr 07/30/21 00:00 08/02/21 05:42 Unasyn/Ns 3 Gm/100 Ml IV 100 mls/hr Q6HR GOLDIE Administration Protocol Sodium Chloride 1,000 mls @ 42 mls/hr 08/01/21 17:00 08/01/21 17:34 Nacl 0.45% 1000 Ml IV 42 mls/hr DIRECT GOLDIE Administration Metoclopramide HCl 10 mg 07/29/21 21:04 Metoclopramide 10 Mg/2 Ml Inj IV Q6H PRN Nausea And Vomiting Metoprolol Tartrate 12.5 mg 07/29/21 22:00 08/01/21 22:04 Metoprolol Tartrate 25 Mg Tab PO 12.5 mg BID GOLDIE Administration Ondansetron HCl 4 mg 07/29/21 21:04 Ondansetron 4 Mg/2 Ml Inj IV Q3H PRN Nausea And Vomiting Oxybutynin Chloride 15 mg 07/30/21 10:00 08/01/21 09:27 Oxybutynin 5 Mg Tab PO 15 mg QDAY GOLDIE Administration Oxycodone/Acetaminophen 1 tab 07/29/21 21:04 08/01/21 15:40 Oxycodone /Acetaminophen 5-325mg Tab PO 1 tab Q6H PRN Administration Pain, Moderate (4-6) Sodium Chloride 10 ml 07/29/21 22:00 08/01/21 22:05 Sodium Chloride 0.9% 10 Ml Flush Syringe IV 10 ml BID GOLDIE Administration Sodium Chloride 10 ml 07/29/21 21:04 Sodium Chloride 0.9% 10 Ml Flush Syringe IV PRN PRN LINE FLUSH Sodium Hypochlorite 1 applic 08/01/21 08:00 Sodium Hypochlorite, Dakin's 1/2 Strength (0.25%) 473 Ml Topical Soln TP Q12H PRN Wound Care Trazodone HCl 75 mg 08/01/21 22:00 08/01/21 22:04 Trazodone 50 Mg Tab PO 75 mg QHS GOLDIE Administration Venlafaxine HCl 37.5 mg 07/30/21 10:00 08/01/21 09:28 Venlafaxine 37.5 Mg Tab PO 37.5 mg QDAY GOLDIE Administration Nutrition/Malnutrition Assess - Dietary Evaluation Nutrition/Malnutrition Findings: Nutrition Notes Start: 07/30/21 15:13 Freq: Status: Active Protocol: Document 08/01/21 16:32 EDGAR (Rec: 08/01/21 17:10 EDGAR [id number]) Nutrition Notes Need for Assessment generated from: MD Order Initial or Follow up Assessment Current Diagnosis Decubitus(Pressure Ulcer), Sepsis,Hypertension, Malnutrition Other Pertinent Diagnosis MS, [place] Encephalopathy, Anemia. Current Diet Regular Diet (since L 08/01), D Suppl (since D 08/01). Labs/Tests 08/01: N/A. Pertinent Medications 08/01: Nutritionally unremarkable. Height 5 ft 2 in Weight 67.7 kg Louann Body Weight (kg) 50.00 BMI 27.3 Weight change and time frame 0.339 Kg body weight loss in 2 days reported. Weight Status Appropriate Subjective/Other Information RD consult for routine FU on Dietary advancement and MD consult for nutritional supplementation assessment. Pt's PO intake of meals has improved from Negligible to Poor (25-50%), according to ADL notes. Procedure 07/31: Incision and drainage of stage IV infected sacral decubitus wound. Well tolerated, according to Progress notes. Pt has been bed ridden for over 8 years, according to Progress notes. Percent of energy/protein needs met: Prescribed Regular Diet provides for energy/protein needs (2,289 Kcal/89 g) during LOS; additionally, Dietary Supplements will compensate for possible poor or insufficient PO intake of meals and support wound healing processes with 890 Kcal and 45 g of protein. Burn Absent Trauma Absent GI Symptoms None Food Allergy No Skin Integrity/Comment Stage IV sacral decubitus wound. Current % PO Poor (25-49%) Minimum of two criteria Yes #2 Nutrition Diagnosis Malnutrition Etiology Ongoing and concomitant chronic metabolic conditions. 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 #1 Nutrition Diagnosis Increased nutrient needs ( specify in comment below) Comments: Protein to support wound healing processes. Diagnosis Progress(for reassessment Continues documentation) Is patient on ventilator? No Is Patient Ambulatory and/or Out of Bed No REE-([facility]-confined to bed) [phone] Calculation Used for Recommendations [facility] Additional Notes Protein: 1.25-1.5 g/Kg ABW; 85 -102 g/day. Fluids: 1 ml/Kcal, or as per MD. Nutrition Intervention Change Diet Order: Continue Regular Diet, as tolerated. Add Supplement/Snack (indicate name/kcal 8 fl oz Ensure Enlive; BID. /protein ) 28.8 g pkt Kevin; BID. Provides kCal: 890 Provides Protein (gm) 45 Goal #1 Support, through dietary supplementation, wound healing processes during LOS. Goal #2 Compensate, through dietary supplementation, for possible poor or insufficient PO intake of meals during LOS. Goal #3 Maintain body weight within +/ -3% of admission body weight during LOS. Follow-Up By: 08/08/21 Additional Comments Continue monitoring food tolerance, %PO intake of meals , and BM.
--- NOTE | 2021-08-02 09:11 | Progress Note ---
Assessment and Plan Cultures: 07/29/2021 blood culture: CoNS in 1 of 4 bottles 07/29/2021 buttock wound culture: Proteus mirabilis 07/31/2021 deep culture: Enterococcus species A/P: 66-year-old female with multiple sclerosis, bedridden for the last few years, spends most of the time in bed or in a wheelchair was sent from the care home due to worsening sacral ulcer: #Sepsis, secondary to necrotic sacral decubitus ulcer with likely associated osteomyelitis: Pathophysiology of the wound explained to the patient. Patient wears diapers and gets frequent urine as well as stool contamination. She declined a diverting colostomy to prevent fecal contamination. Due to the acute infectious process, will plan to treat with antimicrobials for about 2 to 3 weeks. Prolonged antibiotics unlikely to be of much benefit. She will need frequent offloading, nutritional optimization and wound care. #CoNS bacteremia: 1 out of 4 bottles positive, suspect contaminant. #Multiple sclerosis, bedbound status #Protein calorie malnutrition #Acute anemia: microcytic. Recs: -Follow-up wound culture finalization -Continue IV Unasyn 3 g every 6 hours x 3 weeks of therapy, end date: 08/21/2021. CM orders have already been placed -Insert midline -needs frequent offloading, nutritional optimization and wound care -avoidance of fecal contamination of the wound -guarded prognosis Wil Lieberman MD, FACP, [facility] O: [phone] F: [phone] C: [phone] Subjective Date of service: 08/02/21 Interval history: No fever. Feeling tired, found to have low hemoglobin. Objective - Exam Narrative Exam: Physical Exam: Constitutional: Alert, cooperative. No acute distress Head, Ears, Nose: Normocephalic, atraumatic. External ears, nose normal Eyes: Conjunctivae/corneas clear. No icterus. No ptosis. Neck: Supple, no meningeal signs Cardiovascular: S1, S2 + Respiratory: Good air entry, clear to auscultation bilaterally GI: Soft, non-tender; bowel sounds normal. No peritoneal signs Musculoskeletal: No pedal edema, no cyanosis. Sacral wound with dressing Skin: No rash or abscess Hem/Lymphatic: No palpable cervical or supraclavicular nodes. No lymphangitis Psych: Mood ok. Affect normal Neurological: Awake, alert, oriented. Paraplegic - Constitutional Vitals: Vital Signs Temp Pulse Resp BP Pulse Ox 99.4 F 98 H 18 129/62 94 08/02/21 03:45 08/02/21 03:45 08/02/21 03:45 08/02/21 03:45 08/02/21 03:45 Temperature -Last 24 Hours Temperature 99.4 F Temperature 98.5 F Temperature 98.6 F Temperature 98.4 F - Labs CBC & Chem 7: 08/02/21 04:53 07/30/21 06:12 Labs: Abnormal lab results 08/02/21 08/02/21 Range/Units 04:53 06:44 RBC 2.44 L (3.65-5.03) M/mm3 Hgb 6.2 L (10.1-14.3) gm/dl Hct 18.6 L* (30.3-42.9) % MCV 76 L (79-97) fl MCH 26 L (28-32) pg RDW 19.3 H (13.2-15.2) % Plt Count 465 H (140-440) K/mm3 Seg Neuts % (Manual) 71.0 H (40.0-70.0) % Basophils % (Manual) 2.0 H (0.0-1.8) % Basophils # (Manual) 0.2 H (0.0-0.1) K/mm3 Crossmatch See Detail
[2021-08-02] MEDS: BACLOFEN 10 MG TAB PO SCH ×2 (09:44→13:43)
[2021-08-02] MEDS: oxyCODONE /ACETAMINOPHEN 5-325MG TAB PO PRN (09:44)
[2021-08-02] MEDS: METOPROLOL TARTRATE 25 MG TAB PO SCH (09:44)
[2021-08-02] MEDS: OXYBUTYNIN 5 MG TAB PO SCH (09:45)
[2021-08-02] MEDS: VENLAFAXINE 37.5 MG TAB PO SCH (11:35)
--- NOTE | 2021-08-02 11:43 | Discharge Summary ---
Providers - Providers Date of Admission: 07/29/21 21:04 Date of discharge: 08/02/21 Attending physician: TYE BUCKNER 07/29/21 21:04 Consult to Physician [CONS] Routine Comment: Consulting Provider: ALFREDO ANDREW Physician Instructions: Reason For Exam: Sacral decubitus ulcer 07/30/21 08:08 Physical Therapy Evaluation and Treat [CONS] Routine Comment: evaluation Reason For Exam: Paraplegia 07/31/21 12:18 Consult to Physician [CONS] Routine Comment: Consulting Provider: WIL VIVAS Physician Instructions: Reason For Exam: clinic osteomyelitis, stage 4 sacral wound 08/01/21 13:35 Consult to Case Management [CONS] Routine Services Needed at Discharge: Other Notified:: CM Comment:: IV antibiotics Additional Physician Instructions: [facility] O: [phone] F: [phone] OUTPATIENT PARENTERAL ANTIBIOTIC THERAPY (OPAT) ORDERS Diagnoses: Necrotic sacral wound, sepsis, sacral osteomyelitis Antimicrobial administration: IV Unasyn 3 g every 6 hours for 3 weeks ending 08/21/2021 - Remove PICC/midline after last dose unless otherwise instructed. Lines: Maintain IV access with weekly dressing changes and locks per protocol. Lab monitoring: - CBC with differential, CMP, CRP once a week every Saturday while on IV antibiotics. - Please fax results to [phone] and call [phone] for critical lab results. Wil Vivas MD, FACPALEXANDRE [facility] Midline [Consult to PICC Line RN] [CONS] Routine Reason For Exam: IV abx Type Line:: Midline Primary care physician: HECTOR RAE Hospitalization Reason for admission: Infected sacral decubitus ulcer Condition: Fair Hospital course: 66-year-old female with a history of multiple sclerosis who is bedbound. Patient is currently residing in a snf and was sent from the snf to the hospital for altered mental status and evaluation of a sacral decubitus ulcer. Patient states she has been in the snf since February of last year and does not have a history of a sacral wound prior. During evaluation in the emergency room, patient was noted to have a foul-smelling necrotic sacral decubitus ulcer for which surgery was consulted. The patient was admitted with diagnosis of sepsis secondary to infected unstageable sacral decubitus ulcer, bedbound status secondary to multiple sclerosis, multiple sclerosis, protein calorie malnutrition and toxic metabolic encephalopathy Hospital course: 07/31/2021. Patient for debridement of infected sacral decubitus wound today per surgery. 08/01/2021. Patient is s/p debridement with surgery. Continue offloading of sacrum and bilateral heels. Continue IV antibiotics and consult ID for further evaluation. Continue appropriate pain control. 08/02/2021. Continue IV antibiotics per ID recommendations for 3 weeks of therapy. Follow-up blood and wound culture results. Continue frequent offloading and nutritional optimization for wound healing. Patient refuses diverting colostomy to avoid fecal contamination of wound. Continue p.o. medications for pain control. Continue twice daily sacral wound dressing changes with Dakin's per wound care. The patient will likely need a wound VAC placed at snf once infection is controlled. Patient is to follow-up with wound care center in 7 days upon discharge. I suspect ABLA is likely from recent debridement. Type and cross and transfuse PRBCs. Follow-up H&H. If hemoglobin is stable after transfusion, patient will discharge home today or in a.m. Case management reports that antibiotics have been arranged. Dedicated discharge time 32 minutes Disposition: 30 STILL A PATIENT Final Discharge Diagnosis (Prints w/discharge instructions): Infected unstageable sacral decubitus ulcer. ABLA. Bedbound status secondary to multiple sclerosis. Multiple sclerosis. Protein calorie malnutrition. Sepsis. Toxic metabolic encephalopathy Core Measure Documentation - Palliative Care Palliative Care/ Comfort Measures: Not Applicable - Core Measures Any of the following diagnoses?: none Exam - Constitutional Vitals: Temp Pulse Resp BP Pulse Ox 99.4 F 98 H 18 129/62 94 08/02/21 03:45 08/02/21 03:45 08/02/21 03:45 08/02/21 03:45 08/02/21 03:45 General appearance: Present: no acute distress, well-nourished - EENT Eyes: Present: PERRL ENT: hearing intact, clear oral mucosa - Neck Neck: Present: supple, normal ROM - Respiratory Respiratory effort: normal Respiratory: bilateral: CTA - Cardiovascular Heart Sounds: Present: S1 & S2. Absent: rub, click - Extremities Extremities: pulses symmetrical, No edema Peripheral Pulses: within normal limits - Abdominal General gastrointestinal: Present: soft, non-tender, non-distended, normal bowel sounds Female genitourinary: Present: normal - Integumentary Integumentary: Present: clear, warm, dry - Musculoskeletal Musculoskeletal: gait normal, strength equal bilaterally - Psychiatric Psychiatric: appropriate mood/affect, intact judgment & insight - Neurologic Neurologic: CNII-XII intact, moves all extremities Plan Activity: advance as tolerated Weight Bearing Status: Weight Bear as Tolerated Diet: regular Wound: per your surgeon's advice, per wound nurse instructions Durable Medical Equipment Needed Upon Discharge: other (wound vac) Follow up with: HECTOR RAE MD [Primary Care Provider] - 3-5 Days WIL VIVAS MD [Staff Physician] - 7 Days
[2021-08-02 13:40] VITALS: BP 114/73
[2021-08-02] MEDS: HYDROmorphone 1 MG/1 ML INJ IV PRN (13:45)
[2021-08-02] MEDS ORDERED: NEOMY 3.5 MG/BACIT 400 UNITS/POLY B 5000 UNITS/GM OINT PACKET TP ONE (17:32)
== END 2021-08-02 17:30 | DRG 853 ==
LOC: ED 15:55 → 3A 21:04
PROVIDERS: ADMIT Internal Medicine; ATTEND Hospitalist
PROC: 06HM33Z Insertion of Infusion Device into Right Femoral Vein, Percutaneous Approach (ICD-10-PCS; 2021-07-29)
PROC: 0QB10ZZ Excision of Sacrum, Open Approach (ICD-10-PCS; principal; 2021-07-31)
PROC: 30233N1 Transfusion of Nonautologous Red Blood Cells into Peripheral Vein, Percutaneous Approach (ICD-10-PCS; 2021-08-02)
PROC: 05HA33Z Insertion of Infusion Device into Left Brachial Vein, Percutaneous Approach (ICD-10-PCS; 2021-08-02)
DX: A41.89 Other specified sepsis (principal); L89.154 Pressure ulcer of sacral region, stage 4; G92.8 Other toxic encephalopathy; E44.0 Moderate protein-calorie malnutrition; G35 Multiple sclerosis; N39.3 Stress incontinence (female) (male); I10 Essential (primary) hypertension; Z88.2 Allergy status to sulfonamides; Z88.1 Allergy status to other antibiotic agents; R65.20 Severe sepsis without septic shock; D63.8 Anemia in other chronic diseases classified elsewhere; Z68.27 Body mass index [BMI] 27.0-27.9, adult; D50.9 Iron deficiency anemia, unspecified; Z20.822 Contact with and (suspected) exposure to COVID-19
CPT/HCPCS: 36415; 71045; 80053; 81001; 82140; 82747; 82962; 84439; 84443; 84484; 85007; 85025; 86850; 86900; 86901; 86920; 87040; 87075; 87076; 87116; 87186; 93005; G0378; J3490; J7120; Q0162; J0295; J0692; J1170; J1885; J2250; J2704; J3010; J3370; J7030; J7040; P9016; U0003